=== PATIENT | female | born 1945 | race Caucasian/White ===

== ENCOUNTER 2019-11-13 14:37 | Outpatient (CLI) | payer MEDICARE, OTHER, SELFPAY ==
--- NOTE | 2019-11-13 15:00 | USCV_ITS ---
Tiff Rose Age: 73 Gender: F : 1945 Exam Date: 11/13/2019 15:08 Ordering Phys: Jake Hill DO Technologist: Blanca Silva Exam Location: [facility] [place] Indication: systolic murmur BP: / HR: 62 Rhythm: Sinus Technical Quality: Adequate MEASUREMENTS (Male / Female) Normal Values 2D ECHO LV Diastolic Diameter PLAX 4.4 cm 4.2 - 5.9 / 3.9 - 5.3 cm LV Systolic Diameter PLAX 1.5 cm IVS Diastolic Thickness 1.1 cm 0.6 - 1.0 / 0.6 - 0.9 cm IVS Systolic Thickness 1.5 cm LVPW Diastolic Thickness 0.9 cm 0.6 - 1.0 / 0.6 - 0.9 cm LVPW Systolic Thickness 1.7 cm LVOT Diameter 2.0 cm LV Ejection Fraction 2D Teich 93.5 % LV Ejection Fraction MOD 2C 62.0 % LV Ejection Fraction 2C AL 63.1 % LA Diameter 3.6 cm LA Width 2.8 cm LA Height 4.5 cm RA Width 2.2 cm RA Height 4.2 cm M-MODE LV Diastolic Diameter MM 4.8 cm 4.2 - 5.9 / 3.9 - 5.3 cm LV Systolic Diameter MM 2.9 cm LV Ejection Fraction MM Teich 70.9 % IVS Diastolic Thickness MM 0.5 cm 0.6 - 1.0 / 0.6 - 0.9 cm IVS Systolic Thickness MM 0.9 cm LVPW Diastolic Thickness MM 0.8 cm 0.6 - 1.0 / 0.6 - 0.9 cm LVPW Systolic Thickness MM 1.7 cm Aortic Annulus Diameter 2.6 cm LA Ao Ratio MM 1.4 MV E Point Septal Separation 0.3 cm DOPPLER AV Peak Velocity 144.0 cm/s LVOT Peak Velocity 126.0 cm/s AV Area Cont Eq vti 2.8 cm squared AV Area Cont Eq pk 2.8 cm squared MV Peak Velocity 110.0 cm/s MV Area PHT 4.3 cm squared Mitral E to A Ratio 0.9 MV E' Velocity 8.0 cm/s Mitral E to MV E' Ratio 8.9 Mitral E to LV E' Lateral Ratio 8.4 Mitral E to LV E' Septal Ratio 9.5 TR Peak Velocity 209.0 cm/s TR Peak Gradient 17.5 mmHg Right Atrial Pressure 3.0 mmHg Pulmonary Artery Systolic Pressu 20.5 mmHg PV Peak Velocity 114.0 cm/s RV Acceleration Time 0.1 s FINDINGS Left Ventricle Normal left ventricular cavity size. Normal left ventricular systolic function. No regional wall motion abnormalities. Left ventricular ejection fraction is estimated at 65 %. Grade II/IV diastolic dysfunction, moderately elevated filling pressures. Right Ventricle The right ventricle is normal in size and function. Right Atrium The right atrium is normal in size. Left Atrium The left atrium is normal in size. Mitral Valve Structurally normal mitral valve without significant stenosis or prolapse. There is no mitral regurgitation. Aortic Valve Mild aortic valve calcification. No aortic valve stenosis. Mild to moderate aortic valve regurgitation. Tricuspid Valve Mild tricuspid valve regurgitation. Pulmonic Valve Structurally normal pulmonic valve without significant stenosis. There is no pulmonic regurgitation. Pericardium Normal pericardium without effusion. Aorta Normal ascending aorta dimension. CONCLUSIONS 1-Normal left ventricular cavity size. Normal left ventricular systolic function. No regional wall motion abnormalities. Left ventricular ejection fraction is estimated at 65 %. Grade II/IV diastolic dysfunction, moderately elevated filling pressures. 2-Structurally normal mitral valve without significant stenosis or prolapse. There is no mitral regurgitation. 3-Mild aortic valve calcification. No aortic valve stenosis. Mild to moderate aortic valve regurgitation. 4-Mild tricuspid valve regurgitation. 5-There is no pericardial effusion. 6-Pulmonary artery systolic pressure is within normal limits. 7-Right atrial pressure is around 5 mm of mercury. 8-No significant change since the prior echocardiogram study of 05/20/2016. Shelbie Todd MD (Electronically Signed) Final Date: 13 November 2019 17:55 S
== END 2019-11-13 14:38 | disposition home or self-care (01) ==
LOC: US 14:43
PROVIDERS: Family Provider Internal Medicine; PCP Internal Medicine; Visit Provider Internal Medicine
DX: I08.2 Rheumatic disorders of both aortic and tricuspid valves (principal); R01.1 Cardiac murmur, unspecified
CPT/HCPCS: 93306

== ENCOUNTER 2019-12-11 16:08 | Outpatient (CLI) | payer MEDICARE, OTHER, SELFPAY | END 2019-12-11 16:09 | disposition home or self-care (01) | LOC: LAB 16:14 | PROVIDERS: Family Provider Internal Medicine; PCP Internal Medicine; Visit Provider Internal Medicine Cardiovascular Disease | DX: R06.02 Shortness of breath (principal) | CPT/HCPCS: 80048; 83880; 85378 ==

== ENCOUNTER 2020-04-09 09:06 | Outpatient (CLI) | payer MEDICARE, OTHER, SELFPAY ==
--- NOTE | 2020-04-09 09:29 | ECG_ITS ---
NAME OF STUDY: LEXISCAN SESTAMIBI STRESS TEST INDICATION: Shortness of Breath PROCEDURE: At the baseline, the EKG revealed sinus bradycardia with a poor R wave progression. Features of old anteroseptal SC. Nonspecific T wave changes in the high lateral leads. The baseline blood pressure was 229/78 mm Hg with a heart rate of 56 beats/min. Lexiscan was infused over a period of 20 seconds. A total of 0.4 milligrams of Lexiscan was infused. The stress phase was continued for a total of 5 minutes. Heart rate at the end of the stress phase was 84 with a blood pressure 217/59. The EKG at the peak infusion revealed no significant changes occasional PVCs were noted during the infusion.. Sestamibi was injected 20 seconds after the Lexiscan infusion. Blood pressure at the end of the recovery phase was 198/70 with a heart rate of 58 per minute. CONCLUSION: 1. No significant EKG changes with the LexiScan infusion 2. No LexiScan induced chest pain or cardiac arrhythmia 3. Normal blood pressure and heart rate response 4. Sestamibi/sestamibi perfusion scan pending; see separate report. Electronically Signed On 04-10-2020 9:27:34 CDT by Viky Cuello M.D. [email or web address]
--- NOTE | 2020-04-09 09:30 | NMCV_ITS ---
NM arpan perf SPECT r/s* [id number] Tiff Rose Age: 74 Gender: F : 1945 Exam Date: 04/09/2020 10:10 Ordering Phys: Viky Cuello MD ([email or web address]) Technologist: ROMA Jamil Exam Location: [facility] Indications: SHORTNESS OF BREATH STRESS TEST Please see separate stress test report in [facility] for full findings IMAGE PROTOCOL Rest/Stress 1 Lexiscan Day Radiopharmaceutical Dose (mCi) Administration Site Administered by Rest: Tc-99m 10.7 IV ROMA Thao Sestamibi Stress:Tc-99m 32.8 IV ROMA Thao Sestamibi Rest: 09-Apr-2020 60 Discovery 630 Stress: 09-Apr-2020 30 Discovery 630 0.4mg Lexiscan. Images obtained in supine and prone position. SPECT RESULTS Technical Quality: Excellent Raw Data Analysis: Normal Image Corrections: No attenuation or motion correction applied Summed Stress Score: 0 Summed Rest Score: 0 Summed Difference Score: 0 PERFUSION FINDINGS Fairly uniform myocardial tracer uptake with no significant perfusion abnormalities FUNCTIONAL RESULTS (calculated via Gated SPECT) Stress Image LV EF (%): 86 Stress EDV (mL):71 TID: 1.03 Stress ESV (mL):10 FUNCTIONAL FINDINGS: Segmental wall motion analysis revealing no gross wall motion abnormalities IMPRESSIONS 1. Unremarkable myocardial perfusion imaging. 2. Normal LV ejection fraction. 3. LV wall motion analysis revealing no gross wall motion abnormalities 4. Normal LV volume. No significant coronary ischemia, based on the above findings Dr Viky Cuello MD FACC (Electronically Signed) Final Date: 09 April 2020 20:22 S
[2020-04-09 09:33] VITALS: BMI 34.4
--- NOTE | 2020-04-09 10:57 | SUR.PREOP ---
Patient reports no pain or discomfort prior to the start of the procedure.
[2020-04-09] MEDS: regadenoson 0.4 Mg/5 ml Syringe IVP (11:09)
[2020-04-09] MEDS: amlodipine 5 mg Tablet PO (11:27)
[2020-04-09 12:06] VITALS: BP 198/72; PULSE 60
== END 2020-04-09 09:07 | disposition home or self-care (01) ==
PROVIDERS: Family Provider Internal Medicine; PCP Internal Medicine; Visit Provider Internal Medicine Cardiovascular Disease
DX: R06.02 Shortness of breath (principal)
CPT/HCPCS: 78452; 93017; A9500; J2785

== ENCOUNTER → 2020-06-06 13:16 | Outpatient (BNVA) | payer MEDICARE, OTHER, SELFPAY | PROVIDERS: Family Provider Internal Medicine; PCP Internal Medicine; Referring Provider Nurse Practitioner Family; Visit Provider Nurse Practitioner | DX: G25.9 Extrapyramidal and movement disorder, unspecified (principal); R41.9 Unspecified symptoms and signs involving cognitive functions and awareness | CPT/HCPCS: 99204 ==

== ENCOUNTER 2020-06-21 08:13 | Outpatient (CLI) | payer MEDICARE, OTHER, SELFPAY ==
[2020-06-21 08:45] LABS: Blood Urea Nitrogen 21 mg/dL (8-23)
[2020-06-21] MEDS: iohexol 300 mg/mL 100 mL Btl IV (09:00)
--- NOTE | 2020-06-21 09:00 | CT_ITS ---
WS: [id number] CT scan of the head, with and without IV contrast, 06/21/2020 Clinical Data: SEE DX Comparison: CT head, 03/15/2019. DLP: 1719.[address] scans at [facility] use at least one of these dose optimization techniques: automat ed exposure control; mA and/or kV adjustment per patient size (includes targeted exams where dose is matched to clinical indication); or iterative reconstruction. Findings: The ventricular system is normal without shift. No recent infarct or hemorrhage is seen. There are no abnormal intracerebral masses. The cerebellum and brainstem are not remarkable. No abnormal contrast enhancement of any structure occurs. Bony windows of the skull and skull base show no fractures or erosions. The mastoid air cells, risk management intern al auditory canals, sella turcica, intraorbital contents, and paranasal sinuses are unremarkable. CT/CT head wo/w con [id number] Impression: Negative CT scan of the head
== END 2020-06-21 08:14 | disposition home or self-care (01) ==
LOC: RADWPI 08:16
PROVIDERS: Family Provider Internal Medicine; PCP Internal Medicine; Visit Provider Nurse Practitioner
DX: G25.9 Extrapyramidal and movement disorder, unspecified (principal)
CPT/HCPCS: 70470; 82565; 84520; Q9967

== ENCOUNTER → 2020-07-16 12:38 | Outpatient (BNVA) | payer MEDICARE, OTHER, SELFPAY | PROVIDERS: Family Provider Internal Medicine; PCP Internal Medicine; Visit Provider Specialist | DX: G25.3 Myoclonus (principal); Z87.891 Personal history of nicotine dependence | CPT/HCPCS: 95816 ==

== ENCOUNTER 2023-03-13 20:06 | Emergency (ER) | payer MEDICARE, OTHER, SELFPAY ==
[2023-03-13 20:19] VITALS: BP 152/80; PULSE 72; RESP 16; TEMP 37.3; O2SAT 94; BMI 29.6
--- NOTE | 2023-03-13 21:04 | CTR_ITS ---
PROCEDURE INFORMATION: Exam: CT Cervical Spine Without Contrast Exam date and time: 03/13/2023 9:24 PM Age: 77 years old Clinical indication: Injury or trauma; Fall; Blunt trauma; Additional info: Fall, hit top of head, neck tenderness TECHNIQUE: Imaging protocol: Computed tomography of the cervical spine without contrast. Radiation optimization: All CT scans at this facility use at least one of these dose optimization techniques: automated exposure control; mA and/or kV adjustment per patient size (includes targeted exams where dose is matched to clinical indication); or iterative reconstruction. REPORTING DATA: Count of CT and Cardiac NM exams in prior 12 months: This patient has received 0 known CTs and 0 known cardiac nuclear medicine studies in the 12 months prior to the current study. COMPARISON: CT head wo con* [id number] 03/13/2023 9:21 PM RADIATION DOSE METRICS: Total DLP (mGy-cm): 356.75 FINDINGS: Bones/joints: No acute cervical spine fracture or spondylolisthesis. The atlanto dens interval is within normal limits. Operative changes of C4 laminectomy. Osseous fusion of the C5 and C6 vertebral bodies. Multilevel intervertebral disc space narrowing along with posterior disc osteophyte complexes, uncovertebral joint hypertrophic changes, and facet arthropathy appears to result in up to severe stenosis of the neural foramina at multiple levels most pronounced at C6-C7 and on the left at C4-C5. Neurostimulator leads enter the posterior spinal canal at the level of T2-T3 with the distal end terminating at the level of C4. Lungs: Right upper lobe 5 mm x 3 mm pulmonary nodule on series 6, image 82. Left upper lobe sub 5 mm hazy reticulonodular opacity on series 6, image 81. Soft tissues: Grossly unremarkable. CT/CT cervical spin wo con* [id number] IMPRESSION: 1. No acute cervical spine fracture or spondylolisthesis. 2. Operative changes of C4 laminectomy and cervical spondylosis as described above. 3. Right upper lobe 5 mm x 3 mm pulmonary nodule on series 6, image 82. For patients at low risk (minimal or absent history of smoking and of other known risk factors), no routine follow-up is indicated. For patients at high risk (history of smoking or of other known risk factors), consider optional CT Chest at 12 months. (Reference: Frank) 4. Other chronic/incidental findings as described above. REFERENCES: Frank Luther, et al. Guidelines for Management of Incidental Pulmonary Nodules Detected on CT Images: From the Fleischner Society 2017. Radiology. 2017;284(1):228-243.
--- NOTE | 2023-03-13 21:04 | CTR_ITS ---
PROCEDURE INFORMATION: Exam: CT Head Without Contrast Exam date and time: 03/13/2023 9:21 PM Age: 77 years old Clinical indication: Injury or trauma; Fall; Blunt trauma (contusions or hematomas); Consciousness not specified; Additional info: Fall, hematoma to top right of head with nausea TECHNIQUE: Imaging protocol: Computed tomography of the head without contrast. Radiation optimization: All CT scans at this facility use at least one of these dose optimization techniques: automated exposure control; mA and/or kV adjustment per patient size (includes targeted exams where dose is matched to clinical indication); or iterative reconstruction. REPORTING DATA: Count of CT and Cardiac NM exams in prior 12 months: This patient has received 0 known CTs and 0 known cardiac nuclear medicine studies in the 12 months prior to the current study. COMPARISON: CT head wo/w con [id number] 06/21/2020 8:49 AM RADIATION DOSE METRICS: Total DLP (mGy-cm): 1136.35 FINDINGS: Brain: No acute intracranial hemorrhage, abnormal extra-axial fluid collection, mass effect, or midline shift. Cerebral ventricles: The ventricular system is within normal limits of variation for the patient's age. Paranasal sinuses: Visualized paranasal sinuses are grossly unremarkable. No fluid levels. Mastoid air cells: Visualized mastoid air cells are well aerated. Bones/joints: No acute fracture. Hyperostosis frontals interna. Soft tissues: Mild soft tissue swelling/hematoma overlying the right the parietal bone. Vasculature: Atheromatous changes are seen within the bilateral carotid siphons. CT/CT head wo con* [id number] IMPRESSION: 1. No acute intracranial findings. 2. Other chronic/incidental findings as described above.
--- NOTE | 2023-03-13 21:04 | XRR_ITS ---
PROCEDURE INFORMATION: Exam: XR Right Toe(s) Exam date and time: 03/13/2023 9:41 PM Age: 77 years old Clinical indication: Injury or trauma; Fall; Blunt trauma; Toes; Right; Additional info: Injury, hit toe during fall- avulsed nail TECHNIQUE: Imaging protocol: Radiologic exam of the right toes. Views: Minimum 2 views. COMPARISON: No relevant prior studies available. FINDINGS: Bones/joints: No acute fracture or dislocation. Mild degenerative changes of the partially imaged right toes. Flexion of the 2nd and 3rd toes suggestive of hammertoe. Soft tissues: Grossly unremarkable. XR/XR toe RT min 2V [id number] IMPRESSION: No acute fracture or dislocation, see above.
--- NOTE | 2023-03-13 21:17 | XRR_ITS ---
PROCEDURE INFORMATION: Exam: XR Lumbosacral Spine Exam date and time: 03/13/2023 9:37 PM Age: 77 years old Clinical indication: Injury or trauma; Fall; Blunt trauma (contusions or hematomas); Additional info: Fall, pain TECHNIQUE: Imaging protocol: Radiologic exam of the lumbosacral spine. Views: 2 or 3 views. COMPARISON: CT lumbar spine w con [id number] 05/29/2016 10:42 AM FINDINGS: Bones/joints: No acute fracture, spondylolisthesis, or spondylolysis. Moderate to severe lower lumbar facet arthropathy appears to result in at least mild stenosis of the neural foramina at L5-S1. Soft tissues: Neurostimulator generator is projected over the bilateral upper quadrants. Partially imaged leads appear intact. Vasculature: Atheromatous changes are seen within the infrarenal aorta and bilateral iliac arteries. XR/XR lumbar spine 2-3V* [id number] IMPRESSION: 1. No acute lumbar spine fracture, spondylolisthesis, or spondylolysis. 2. Lumbar spondylosis and other chronic/incidental findings as described above.
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
--- NOTE | 2023-03-13 21:44 | XRR_ITS ---
PROCEDURE INFORMATION: Exam: XR Ribs Exam date and time: 03/13/2023 9:48 PM Age: 77 years old Clinical indication: Injury or trauma; Fall; Rib area, bilateral; Blunt trauma; Additional info: Rib pain TECHNIQUE: Imaging protocol: Radiologic exam of the of the ribs. Views: 3 views. Bilateral ribs. COMPARISON: CR XR chest 2V* [id number] 06/13/2021 9:53 AM FINDINGS: Bones/joints: No acute fracture or dislocation. Neurostimulator devices in place wires appear intact with distal end of thoracic leads projecting at the level of T7-T8 and the distal end of the cervical leads projecting over the partially imaged lower cervical spine. Pleural space: No pneumothorax. Soft tissues: Grossly unremarkable in appearance. XR/XR ribs BI mn 4V w CXR1V [id number] IMPRESSION: No acute fracture or dislocation. No pneumothorax.
[2023-03-13] MEDS: acetaminophen 325 mg Tablet 650 MG PO (23:15)
[2023-03-13 23:56] VITALS: BP 152/80; PULSE 72; RESP 16; O2SAT 94
== END 2023-03-13 23:57 | disposition home or self-care (01) ==
PROVIDERS: Emergency Provider Physician Assistant; PCP Internal Medicine
DX: S00.03XA Contusion of scalp, initial encounter (principal); S50.11XA Contusion of right forearm, initial encounter; S91.201A Unspecified open wound of right great toe with damage to nail, initial encounter; M54.50 Low back pain, unspecified; S06.0X0A Concussion without loss of consciousness, initial encounter; Z87.891 Personal history of nicotine dependence; G30.9 Alzheimer's disease, unspecified; F02.80 Dementia in other diseases classified elsewhere, unspecified severity, without behavioral disturbance, psychotic disturbance, mood disturbance, and anxiety; I10 Essential (primary) hypertension; W10.8XXA Fall (on) (from) other stairs and steps, initial encounter
CPT/HCPCS: 70450; 71111; 72100; 72125; 73660; 99284

== ENCOUNTER 2023-07-16 00:37 | Emergency (ER) | payer MEDICARE, OTHER, MEDICAID, SELFPAY ==
[2023-07-16] VITALS (18 sets, daily range): BP systolic 166–220; BP diastolic 54–93; PULSE 68–89; RESP 14–25; TEMP 36.6; O2SAT 93–100; BMI 28.3
--- NOTE | 2023-07-16 00:55 | XRR_ITS ---
PROCEDURE INFORMATION: Exam: XR Chest Exam date and time: 07/16/2023 12:59 AM Age: 77 years old Clinical indication: Other: Chills/sweats; Additional info: Weakness TECHNIQUE: Imaging protocol: Radiologic exam of the chest. Views: 1 view. COMPARISON: No relevant prior studies available. FINDINGS: Lungs: Unremarkable. No consolidation. Pleural spaces: Unremarkable. No pleural effusion. No pneumothorax. Heart/Mediastinum: Unremarkable. No cardiomegaly. Advanced diffuse vascular calcification noted. Bones/joints: Multifocal spinal leads. XR/XR chest 1V portable [id number] IMPRESSION: No acute findings.
--- NOTE | 2023-07-16 00:55 | ECG_ITS ---
[facility] Test Date: 2023-07-16 Pat Name: Tiff Rose Department: Room: Gender: Female Vice President Education: : 1945 Requested By: Elliot Leal Order Number: [id number] Jocelyn MD: Viky Cuello M.D. Measurements Intervals [place] Rate: 69 P: 55 [place]: 178 QRS: -16 QRSD: 81 T: 103 QT: 398 QTc: 427 Interpretive Statements SINUS RHYTHM ANTEROSEPTAL MYOCARDIAL INFARCTION , OF INDETERMINATE AGE [40+ ms Q WAVE IN V1-V4] Compared to ECG 03/25/2019 23:49:46 Myocardial infarct finding now present T-wave abnormality no longer present Electronically Signed On 07-16-2023 17:18:16 CDT by Viky Cuello M.D. [id number]
--- NOTE | 2023-07-16 01:12 | ED_ITS ---
HPI - Weakness General: Chief complaint: Weakness Stated complaint: Shakey and Clamy Time Seen by Provider: 07/16/23 00:50 History of Present Illness: Patient presents to the ER with complaints of getting shaky clammy and cold. Patient says this been going on for about 12 hours. Daughter says that she only told her about it about an hour ago. Daughter does state patient does have dementia so she is not for sure which is true. Patient denies any pain at this time as well as denies any nausea vomiting diarrhea shortness of breath. Patient did tell nursing that this gets better when she eats peanut butter Patient had a fingerstick blood sugar of approximately 150. Daughter does say patient has had some congestion recently. Review of Systems General: Reports: 10 or more systems reviewed and unremarkable except in HPI and below PFSH ED PFSH: Medical History Alzheimer disease Aortic regurgitation Hypertension Neurocognitive disorder Rosacea Shortness of breath An EKG was done which revealed sinus rhythm with poor R wave progression. Possible old septal [place]. Some nonspecific ST-T changes in the lateral leads Surgical History H/O neck surgery H/O: hysterectomy Family History Other No pertinent family history in first degree relatives Social History Smoking and tobacco status: former smoker Alcohol intake: never Substance/Drug Use: never Physical Exam Const: COMMON NORMALS: no acute distress, average body habitus, patient orimalvin moore x3, no limitations, healthy appearing, alert and well nourished HENMT: COMMON NORMALS: normocephalic, atraumatic, hearing grossly normal bilat erally, external ears normal, Normal external nose present and moist oral mucous membranes HEAD & SCALP: normocephalic and atraumatic NOSE: Normal external nose present EXTERNAL EAR: Yes external ears normal Eye: COMMON NORMALS: Equal, round and reactive pupils present, EOMs intact bilaterally, conjunctivae normal and no scleral icterus CONJUNCTIVA: Yes conjunctivae normal PUPIL: Yes Equal, round and reactive pupils present Neck/C-Spine: COMMON NORMALS: full ROM, no lymphadenopathy, supple, no meningeal signs, no JVD and Thyroid normal THYROID: Thyroid normal Chest: COMMONS NORMALS: normal inspection of the chest and normal palpation of entire chest wall Resp: COMMON NORMALS: normal respiratory effort, No retractions, No use of accessory muscles and clear to auscultation bilaterally AUSCULTATION: clear to auscultation bilaterally Cardio: COMMON NORMALS: no JVD, regular rate, regular rhythm, S1 normal heart sound present, S2 normal heart sound present, No gallops present (Cardio), No clicks present (Cardio), No murmurs present (Cardio) and No rub (Cardio) RATE: regular rate RHYTHM: regular rhythm HEART SOUNDS: S1 normal heart sound present and S2 normal heart sound present GI: COMMON NORMALS: Normal to inspection, nondistended, normoactive bowel sounds present, Soft to palpation, non-tender, No hepatosplenomegaly present and no masses PALPATION: Yes Soft to palpation and Yes No hepatosplenomegaly present : COMMON NORMALS: Yes no CVA tenderness BLADDER/KIDNEY EXAM: Yes no CVA tenderness Back/Pelvis: COMMON NORMALS: no CVA tenderness Neuro: COMMON NORMALS: patient oriented x3 SENSORIUM/ORIENTATION: Yes alert MENINGEAL SIGNS: Yes no meningeal signs Course Vital Signs: Vital signs: Vital Signs Temperature 97.9 F 07/16/23 00:49 Pulse Rate 81 07/16/23 00:49 Respiratory Rate 18 07/16/23 00:49 Blood Pressure 189/56 07/16/23 04:39 Pulse Oximetry 97 07/16/23 00:49 MDM - Weakness Medical Decision Making Patient was worked up in the standard fashion included chest x-ray EKGs and lab work. All of which was benign essentially. Patient was given 1 dose of hydralazine 10 mg to get her blood pressure down. Patient said her symptoms went away when her blood pressure came down her blood pressure went back up and her symptoms came back. Patient was then given 1 p.o. dose of clonidine. Patient will be discharged on lisinopril 5 mg 1 pill once a day to help her blood pressure. Patient should follow-up with her PCP in the next 7 days or sooner as needed. Differential Diagnosis Unlikely acute myocardial infarction, anemia, hypoglycemia, hypothyroidism, rhabdomyolysis, sepsis or dehydration Medical Records I reviewed the patient's medical records. Lab Data I reviewed the patient's lab results. 07/16/23 01:37 07/16/23 01:37 Radiology Impressions Chest X-Ray 07/16/23 00:55 IMPRESSION: No acute findings. Laboratory Results WBC 6.99 10^3/uL (3.29-11.43) 07/16/23 01:37 RBC 5.58 10^6/uL (3.85-5.65) 07/16/23 01:37 Hgb 15.40 g/dL (11.27-16.99) 07/16/23 01:37 Hct 46.8 % (36-47) 07/16/23 01:37 MCV 83.9 fl (85-98) L 07/16/23 01:37 MCH 27.6 pg (27-33) 07/16/23 01:37 MCHC 32.9 g/dL (30-55) 07/16/23 01:37 RDW 14.0 % (12.1-15.1) 07/16/23 01:37 Plt Count 272 10^3/cmm (157-399) 07/16/23 01:37 MPV 9.8 fL (7.4-10.4) 07/16/23 01:37 Neut % (Auto) 71.9 % 07/16/23 01:37 Lymph % (Auto) 18.2 % 07/16/23 01:37 [place] % (Auto) 7.4 % 07/16/23 01:37 Eos % (Auto) 1.3 % 07/16/23 01:37 Baso % (Auto) 0.9 % 07/16/23 01:37 Neut # (Auto) 5.03 10^3/uL (1.8-7.7) 07/16/23 01:37 Lymph # (Auto) 1.3 10^3/uL (0.8-4.8) 07/16/23 01:37 [place] # (Auto) 0.5 10^3/uL (0.2-0.9) 07/16/23 01:37 Eos # (Auto) 0.1 10^3/uL (0.0-0.8) 07/16/23 01:37 Baso # (Auto) 0.1 10^3/uL (0.0-0.1) 07/16/23 01:37 Nucleated RBC % (auto) 0 % 07/16/23 01:37 Nucleated RBCs # 0.0 /100WBC 07/16/23 01:37 Sodium 140 mmol/L (136-145) 07/16/23 01:37 Potassium 4.2 mmol/L (3.5-5.1) 07/16/23 01:37 Chloride 101 mmol/L (98-107) 07/16/23 01:37 Carbon Dioxide 28 mmol/L (22-29) 07/16/23 01:37 Anion Gap 15.2 (5-19) 07/16/23 01:37 BUN 28 mg/dL (8-23) H 07/16/23 01:37 Creatinine 0.7 mg/dL (0.5-0.9) 07/16/23 01:37 GFR Calculation Not Reportable 07/16/23 01:37 Glucose 165 mg/dL (65-115) H 07/16/23 01:37 POC Glucose 118 mg/dL (70-110) H 07/16/23 03:19 Calculated Osmolality 299 mOsm/kg (285-295) H 07/16/23 01:37 Calcium 9.7 mg/dL (8.5-10.5) 07/16/23 01:37 Magnesium 2.4 mg/dL (1.7-2.3) H 07/16/23 01:37 Total Bilirubin 0.2 mg/dL (0.15-1.2) 07/16/23 01:37 AST 15 U/L (0-32) 07/16/23 01:37 ALT 16 U/L (0-33) 07/16/23 01:37 Alkaline Phosphatase 110 U/L (35-105) H 07/16/23 01:37 Troponin T Baseline 17 ng/L (0-10) H 07/16/23 01:37 Troponin T 120 Minute 15.38 ng/L (0-10) H 07/16/23 03:43 Delta Troponin T -1.62 ABS# (0-10) L 07/16/23 03:43 Total Protein 7.3 g/dL (6.6-8.7) 07/16/23 01:37 Albumin 4.8 g/dL (3.5-5.2) 07/16/23 01:37 Globulin 2.5 g/dL (1.3-4.6) 07/16/23 01:37 Urine Color Yellow (Yellow) 07/16/23 03:36 Urine Appearance Clear (CLEAR) 07/16/23 03:36 Urine pH 5 (5-7) 07/16/23 03:36 Ur Specific [place] 1.020 (1.005-1.030) 07/16/23 03:36 Urine Protein Neg (Negative) 07/16/23 03:36 Urine Glucose (UA) Norm (Normal) 07/16/23 03:36 Urine Ketones Negative (Negative) 07/16/23 03:36 Urine Blood Neg (Negative) 07/16/23 03:36 Urine Nitrate Negative (Negative) 07/16/23 03:36 Urine Bilirubin Neg (Negative) 07/16/23 03:36 Urine Urobilinogen Neg mg/dL (Negative) 07/16/23 03:36 Ur Leukocyte Esterase Negative (Negative) 07/16/23 03:36 EKG Data EKG 1: I personally reviewed and interpreted this EKG as follows: EKG interpretation date: 07/16/23 EKG interpretation time: 01:25 Prior EKG tracings: not available for review Interpretation: EKG showed ventricular rate 69 bpm, [place] interval 178, QRS duration 81, QTc of 417, sinus rhythm, anteroseptal myocardial infarction of indeterminate age with Q waves in V1 through V4. EKG 2: I personally reviewed and interpreted this EKG as follows: EKG interpretation date: 07/16/23 EKG interpretation time: 02:53 Prior EKG tracings: available for review Interpretation: EKG showed ventricular rate 72 beats minute, [place] interval 184, QRS duration 92, QTc 419, sinus rhythm, septal myocardial infarction probably old Q waves in V1 V2 Discharge Plan Discharge Patient Disposition: Home Clinical Impression: Hypertension Qualifiers: Hypertension type: primary hypertension Qualified Code(s): I10 - Essential (primary) hypertension Condition: Stable Prescriptions: New lisinopril 5 mg tablet 5 mg PO DAILY Qty: 14 0RF No Action cyproheptadine 4 mg tablet 4 mg PO .at bedtime venlafaxine 37.5 mg capsule,extended release 24hr 37.5 mg PO .twice a day multivitamin Tablet 1 tab PO DAILY ergocalciferol (vitamin D2) 400 unit tablet 400 unit PO DAILY donepezil 10 mg tablet 10 mg PO .at bedtime olanzapine 5 mg tablet 5 mg PO DAILY buprenorphine-naloxone [Suboxone] 8-2 mg film 1 film SUBLINGUAL BID minocycline 100 mg capsule 50 mg PO DAILY Discharge Orders: Discharge ED (Routine); Ordered 07/16/23 Ordered By: Elliot Leal Referrals: Jake Hill DO [Primary Care Provider] - 1 week Patient Instructions: Hypertension Activity Restrictions/Additional Instructions: Please take all medicine as prescribed. Please try to take your blood pressure at least 1 time a day and keep a log and take it with you to your family practice visit. Please try to visit your family practice physician in the next 7 to 10 days or sooner as needed. 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
[2023-07-16 01:46] LABS: Basophils # 0.1 10^3/uL (0.0-0.1); Basophils % 0.9 %; Eosinophils # 0.1 10^3/uL (0.0-0.8); Eosinophils % 1.3 %; Hematocrit 46.8 % (36-47); Lymphocytes # 1.3 10^3/uL (0.8-4.8); Lymphocytes % 18.2 %; Mean Corpuscular HGB Conc 32.9 g/dL (30-55); Mean Corpuscular Hemoglobin 27.6 pg (27-33); Mean Corpuscular Volume 83.9 fl (85-98); Mean Platelet Volume 9.8 fL (7.4-10.4); Monocytes # 0.5 10^3/uL (0.2-0.9); Monocytes % 7.4 %; Neutrophils # 5.03 10^3/uL (1.8-7.7); Neutrophils % 71.9 %; Nucleated Red Blood Cells % 0 %; Platelet Count 272 10^3/cmm (157-399); Red Blood Count 5.58 10^6/uL (3.85-5.65); White Blood Count 6.99 10^3/uL (3.29-11.43)
[2023-07-16 02:04] LABS: Troponin(5th) Baseline 17 ng/L (0-10)
[2023-07-16 02:07] LABS: Alanine Aminotransferase 16 U/L (0-33); Albumin Level 4.8 g/dL (3.5-5.2); Alkaline Phosphatase 110 U/L (35-105); Anion Gap 15.2 (5-19); Aspartate Amino Transferase 15 U/L (0-32); Blood Urea Nitrogen 28 mg/dL (8-23); Calcium 9.7 mg/dL (8.5-10.5); Carbon Dioxide 28 mmol/L (22-29); Chloride 101 mmol/L (98-107); Globulin 2.5 g/dL (1.3-4.6); Glucose 165 mg/dL (65-115); Magnesium 2.4 mg/dL (1.7-2.3); Osmolality Calculated 299 mOsm/kg (285-295); Potassium 4.2 mmol/L (3.5-5.1); Sodium 140 mmol/L (136-145); Total Bilirubin 0.2 mg/dL (0.15-1.2); Total Protein 7.3 g/dL (6.6-8.7)
[2023-07-16] MEDS: hyDRALAzine 20 mg/mL INJ 1 mL 10 MG IVP ×2 (02:11→03:54)
--- NOTE | 2023-07-16 02:53 | ECG_ITS ---
[facility] Test Date: 2023-07-16 Pat Name: Tiff Rose Department: Room: Gender: Female Environmental Services Director: : 1945 Requested By: Elliot Leal Order Number: [id number] Jocelyn MD: Viky Cuello M.D. Measurements Intervals [place] Rate: 72 P: 45 [place]: 184 QRS: -10 QRSD: 82 T: 84 QT: 394 QTc: 434 Interpretive Statements SINUS RHYTHM SEPTAL MYOCARDIAL INFARCTION , PROBABLY OLD [40+ ms Q WAVE IN V1/V2] Compared to ECG 07/16/2023 01:25:04 No significant changes Electronically Signed On 07-16-2023 17:22:11 CDT by Viky Cuello M.D. [id number]
[2023-07-16 03:16] LABS: Glucose Point of Care 156 mg/dL (70-110)
[2023-07-16 03:22] LABS: Glucose Point of Care 118 mg/dL (70-110)
[2023-07-16 04:15] LABS: Add Urine Microscopic? NO; Charge for UA Resulting for Rev
[2023-07-16 04:17] LABS: Troponin 5 2HR 15.38 ng/L (0-10)
[2023-07-16 04:18] LABS: Bilirubin Urine Neg (Negative); Blood Urine Neg (Negative); Glucose Urine UA Norm (Normal); Ketones Urine Negative (Negative); Leukocyte Esterase Urine Negative (Negative); Nitrate Urine Negative (Negative); Protein Urine Neg (Negative); Urine Appearance Clear (CLEAR); Urine Color Yellow (Yellow); Urobilinogen Urine Neg (Negative); pH Urine 5 (5-7)
[2023-07-16 04:18] LABS: Troponin 5 2HR Delta -1.62 ABS# (0-10)
[2023-07-16] MEDS: cloNIDine 0.1 mg Tablet 0.2 MG PO (04:39)
== END 2023-07-16 05:15 | disposition home or self-care (01) ==
PROVIDERS: Emergency Provider Emergency Medicine; PCP Internal Medicine
DX: I10 Essential (primary) hypertension (principal); G30.9 Alzheimer's disease, unspecified; F02.80 Dementia in other diseases classified elsewhere, unspecified severity, without behavioral disturbance, psychotic disturbance, mood disturbance, and anxiety; Z87.891 Personal history of nicotine dependence
CPT/HCPCS: 36415; 36416; 71045; 80053; 81003; 82962; 83735; 84484; 85025; 93005; 96374; 96376; 99285; J0360

== ENCOUNTER 2023-08-08 14:52 | Emergency (ER) | payer MEDICARE, OTHER, MEDICAID, SELFPAY ==
[2023-08-08 15:00] VITALS: BP 162/74; PULSE 94; RESP 17; TEMP 36.8; O2SAT 95; BMI 28.1
--- NOTE | 2023-08-08 15:06 | CTR_ITS ---
PROCEDURE INFORMATION: Exam: CT Cervical Spine Without Contrast Exam date and time: 08/08/2023 3:38 PM Age: 77 years old Clinical indication: Injury or trauma; Fall; Blunt trauma; Prior surgery; Surgery date: 6+ months; Surgery type: Neck; Additional info: Fall, head injury TECHNIQUE: Imaging protocol: Computed tomography of the cervical spine without contrast. Radiation optimization: All CT scans at this facility use at least one of these dose optimization techniques: automated exposure control; mA and/or kV adjustment per patient size (includes targeted exams where dose is matched to clinical indication); or iterative reconstruction. REPORTING DATA: Count of CT and Cardiac NM exams in prior 12 months: This patient has received 2 known CTs and 0 known cardiac nuclear medicine studies in the 12 months prior to the current study. COMPARISON: CT cervical spin wo con* [id number] 03/13/2023 9:24 PM RADIATION DOSE METRICS: Total DLP (mGy-cm): 631.2 FINDINGS: Tubes, catheters and devices: Spinal stimulator leads seen terminating in the cervical spinal canal. Bones/joints: No acute fracture. Normal alignment. No severe spinal canal stenosis. Lungs: Lung apices are normal. Soft tissues: Unremarkable. CT/CT cervical spin wo con* [id number] IMPRESSION: No acute findings.
--- NOTE | 2023-08-08 15:06 | CTR_ITS ---
PROCEDURE INFORMATION: Exam: CT Head Without Contrast Exam date and time: 08/08/2023 3:38 PM Age: 77 years old Clinical indication: Injury or trauma; Fall; Blunt trauma (contusions or hematomas); Additional info: Fall, head injury TECHNIQUE: Imaging protocol: Computed tomography of the head without contrast. Radiation optimization: All CT scans at this facility use at least one of these dose optimization techniques: automated exposure control; mA and/or kV adjustment per patient size (includes targeted exams where dose is matched to clinical indication); or iterative reconstruction. REPORTING DATA: Count of CT and Cardiac NM exams in prior 12 months: This patient has received 2 known CTs and 0 known cardiac nuclear medicine studies in the 12 months prior to the current study. COMPARISON: CT head wo con* [id number] 03/13/2023 9:21 PM RADIATION DOSE METRICS: Total DLP (mGy-cm): 949.4 FINDINGS: Brain: Normal. No hemorrhage. Unremarkable white matter. No mass effect. Cerebral ventricles: No ventriculomegaly. Paranasal sinuses: Visualized sinuses are unremarkable. No fluid levels. Mastoid air cells: Visualized mastoid air cells are well aerated. Bones/joints: Unremarkable. No acute fracture. Soft tissues: Posterior scalp contusion. CT/CT head wo con* [id number] IMPRESSION: No acute intracranial abnormality.
--- NOTE | 2023-08-08 15:40 | W.ED.FALL ---
HPI - Fall General: Chief Complaint: Fall Stated Complaint: fall/head injury Time Seen by Provider: 08/08/23 15:37 History of Present Illness: 77-year-old female comes in today for fall with head injury. Patient was pushing a cart at [facility] and was trying to put the cart up into the rack when the cart jerked on her causing her to fall backwards and hit the back of her head. Patient had no loss of consciousness. Patient did have some mild nausea. Patient has an abrasion to the occipital scalp. Patient is acting normal for self. Patient does have some mild dementia with short-term memory loss. Review of Systems General: Reports: 10 or more systems reviewed and unremarkable except in HPI and below GI: Reports: nausea Skin/Breast: Reports: new lesions PFSH ED PFSH: Medical History Alzheimer disease Aortic regurgitation Hypertension Neurocognitive disorder Rosacea Shortness of breath An EKG was done which revealed sinus rhythm with poor R wave progression. Possible old septal [place]. Some nonspecific ST-T changes in the lateral leads Surgical History H/O neck surgery H/O: hysterectomy Family History Other No pertinent family history in first degree relatives Social History Smoking and tobacco status: former smoker Alcohol intake: never Substance/Drug Use: never Physical Exam Const: COMMON NORMALS: alert HENMT: HEAD & SCALP: other (Abrasion occipital scalp) Neck/C-Spine: CERVICAL SPINE: Yes cervical ROM normal and No Cervical spine tenderness Chest: COMMONS NORMALS: normal inspection of the chest Resp: COMMON NORMALS: normal respiratory effort Cardio: COMMON NORMALS: regular rate RATE: regular rate GI: COMMON NORMALS: non-tender Back/Pelvis: COMMON NORMALS: thoracic and lumbar spine normal to inspection Extremity: COMMON NORMALS: full ROM Neuro: SENSORIUM/ORIENTATION: Yes alert Skin: TRAUMA: abrasion (Scalp occipital) Course Vital Signs: Vital signs: Vital Signs Temperature 98.2 F 08/08/23 15:00 Pulse Rate 94 08/08/23 15:00 Respiratory Rate 17 08/08/23 15:00 Blood Pressure 162/74 08/08/23 15:00 Pulse Oximetry 95 08/08/23 15:00 Oxygen Delivery Me thod Room Air 08/08/23 15:00 MDM - Fall Medical Decision Making 77-year-old female comes in today for evaluation of injury secondary to fall. Patient had slipped and fell striking the back of her head against concrete. On exam patient has a superficial abrasion to the occipital scalp. No crepitus or depression is noted in the skull. Pupils are equal and reactive. Patient moves all extremities well. Differential diagnosis includes skull fracture, intracranial bleeding, cervical neck fracture, contusions, abrasion. CT of the head and cervical spine were negative for fracture or intracranial bleeding. Reviewed exam with patient and family with recommendations for treatment and follow-up. Family and patient both reported understanding. Lab Data Radiology Impressions Cervical Spine CT 08/08/23 15:06 IMPRESSION: No acute findings. Head CT 08/08/23 15:06 IMPRESSION: No acute intracranial abnormality. All radiology interpretation(s) finalized by discharge Discharge Plan Discharge Patient Disposition: Home Clinical Impression: Fall Qualifiers: Encounter type: initial encounter Qualified Code(s): W19.XXXA - Unspecified fall, initial encounter Abrasion of scalp Qualifiers: Encounter type: initial encounter Qualified Code(s): S00.01XA - Abrasion of scalp, initial encounter Condition: Stable Prescriptions: No Action donepezil 10 mg tablet 10 mg PO .at bedtime olanzapine 5 mg tablet 5 mg PO DAILY minocycline 100 mg capsule 50 mg PO DAILY lisinopril 5 mg tablet 5 mg PO DAILY Qty: 14 0RF venlafaxine 75 mg capsule,extended release 24hr 75 mg PO DAILY Discharge Orders: Discharge ED (Routine); Ordered 08/08/23 Ordered By: Jeff Gallego Referrals: Jake Hill DO [Primary Care Provider] - Discharge Diet: Usual diet Discharge Activity: Increase activity as tolerated Patient Instructions: Fall Prevention for Older Adults (ED), Head Injury (ED) Activity Restrictions/Additional Instructions: Activity as tolerated. Use acetaminophen for pain. Clean the abrasion twice a day with mild soap and water and apply [id number] antibiotic ointment. Follow-up with primary care as needed. Return to ED for new concerns. 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
== END 2023-08-08 16:30 | disposition home or self-care (01) ==
PROVIDERS: Emergency Provider Nurse Practitioner Family; PCP Internal Medicine
DX: S00.01XA Abrasion of scalp, initial encounter (principal); G30.9 Alzheimer's disease, unspecified; F02.80 Dementia in other diseases classified elsewhere, unspecified severity, without behavioral disturbance, psychotic disturbance, mood disturbance, and anxiety; I10 Essential (primary) hypertension; Z87.891 Personal history of nicotine dependence; W18.39XA Other fall on same level, initial encounter; Y92.512 Supermarket, store or market as the place of occurrence of the external cause
CPT/HCPCS: 70450; 72125; 99284

== ENCOUNTER 2023-10-06 10:12 | Emergency (ER) | payer MEDICARE, OTHER, MEDICAID, SELFPAY ==
[2023-10-06 10:21] VITALS: BP 149/76; PULSE 80; RESP 17; TEMP 37.1; O2SAT 94; BMI 26.5
--- NOTE | 2023-10-06 11:52 | XRR_ITS ---
PROCEDURE INFORMATION: Exam: XR Chest Exam date and time: 10/06/2023 12:33 PM Age: 77 years old Clinical indication: Cough and dyspnea; Additional info: Dyspnea/cough TECHNIQUE: Imaging protocol: Radiologic exam of the chest. Views: 1 view. COMPARISON: CR XR chest 1V portable [id number] 07/16/2023 12:59 AM FINDINGS: Lungs: Left midlung nodular opacities likely nipple shadow in this location. No focal consolidation. Trace left pleural effusion or atelectasis. Pleural spaces: No large pleural effusion. No pneumothorax. Heart/Mediastinum: No cardiomegaly. Bones/joints: No acute findings. XR/XR chest 1V portable [id number] IMPRESSION: No acute findings.
[2023-10-06 12:07] LABS: Add Urine Microscopic? YES; Bilirubin Urine Neg (Negative); Blood Urine Trace (Negative); Glucose Urine UA Norm (Normal); Ketones Urine 1+ (Negative); Leukocyte Esterase Urine Negative (Negative); Nitrate Urine Negative (Negative); Protein Urine Neg (Negative); Urine Appearance Clear (CLEAR); Urine Color Yellow (Yellow); Urobilinogen Urine 4 mg/dL (Negative); pH Urine 5 (5-7)
[2023-10-06 12:11] VITALS: O2SAT 94
--- NOTE | 2023-10-06 12:16 | ED_ITS ---
HPI - COVID 2 General: Chief Complaint: COVID symptoms Stated Complaint: juan francisco carrero sent covid+ Time Seen by Provider: 10/06/23 11:52 Source: patient Mode of arrival: ambulatory History of Present Illness: 77-year-old female with tested positive at home for COVID after 1 to 2 days of symptoms. She has some mild underlying dementia and family notes she has been a little bit more confused she has had a continuous cough. Low-grade fevers as well. She is awake and alert at this time answers questions appropriately daughter is at the bedside with her. MD complaint: known COVID positive COVID 19 common symptoms: negative fever(s), chills or dyspnea COVID 19 other sytmptoms: negative chest pain COVID Results: 2 No Data to Display Review of Systems 2 Const: Denies: fever(s) or chills Card: Denies: chest pain Resp: Denies: dyspnea GI: Denies: abdominal pain : Denies: dysuria, urinary frequency or urinary urgency Musc: Denies: neck pain or back pain Skin/Breast: Denies: rash PFSH ED 2 PFSH: Medical History Neurocognitive disorder Hypertension Aortic regurgitation Alzheimer disease Shortness of breath An EKG was done which revealed sinus rhythm with poor R wave progression. Possible old septal ID. Some nonspecific ST-T changes in the lateral leads Rosacea Surgical History H/O neck surgery H/O: hysterectomy Family History Other No pertinent family history in first degree relatives Social History Smoking and tobacco/nicotine status: former use of tobacco/nicotine Alcohol intake: never Substance/Drug Use: never Physical Exam 2 Const: GENERAL APPEARANCE: cooperative and comfortable O RIENTATION/CONSCIOUSNESS: Yes awake HENMT: COMMON NORMALS: normocephalic, atraumatic and hearing grossly normal bilaterally HEAD & SCALP: normocephalic and atraumatic Resp: COMMON NORMALS: normal respiratory effort, No retractions, No use of accessory muscles and clear to auscultation bilaterally AUSCULTATION: clear to auscultation bilaterally Cardio: COMMON NORMALS: regular rate, regular rhythm and No murmurs present (Cardio) RATE: regular rate RHYTHM: regular rhythm GI: COMMON NORMALS: Soft to palpation and No hepatosplenomegaly present A USCULTATION: Yes normoactive bowel sounds PALPATION: Yes Soft to palpation, No Tenderness to palpation present (GI), No Guarding due to palpation present (GI) and Yes No hepatosplenomegaly present Extremity: COMMON NORMALS: normal to inspection, capillary refill normal, no clubbing, cyanosis or edema, no calf tenderness and no pedal edema Skin: COMMON NORMALS: no rashes or lesions noted GENERAL SKIN EXAM: no rashes or lesions noted Course 2 Vital Signs: Vital signs: Vital Signs Temperature 98.8 F 10/06/23 10:21 Pulse Rate 88 10/06/23 14:03 Respiratory Rate 18 10/06/23 14:03 Blood Pressure 143/62 10/06/23 14:03 Pulse Oximetry 96 10/06/23 14:03 Oxygen Delivery Me thod Room Air 10/06/23 12:17 MDM - COVID Medical Decision Making Patient has positive for COVID at home she is tolerating well. Chest x-ray unremarkable. We will discharge patient home with supportive cares Paxlovid follow-up with primary care doctor as needed return if worsens. Medical Records I reviewed the patient's medical records. Lab Data I reviewed the patient's lab results. 10/06/23 12:19 10/06/23 12:19 Radiology Impressions Chest X-Ray 10/06/23 11:52 IMPRESSION: No acute findings. Laboratory Results WBC 5.22 10^3/uL (3.29-11.43) 10/06/23 12:19 RBC 5.61 10^6/uL (3.85-5.65) 10/06/23 12:19 Hgb 16.10 g/dL (11.27-16.99) 10/06/23 12:19 Hct 49.1 % (36-47) H 10/06/23 12:19 MCV 87.5 fl (85-98) 10/06/23 12:19 MCH 28.7 pg (27-33) 10/06/23 12:19 MCHC 32.8 g/dL (30-55) 10/06/23 12:19 RDW 13.8 % (12.1-15.1) 10/06/23 12:19 Plt Count 178 10^3/cmm (157-399) 10/06/23 12:19 MPV 11.1 fL (7.4-10.4) H 10/06/23 12:19 Neut % (Auto) 65.1 % 10/06/23 12:19 Lymph % (Auto) 19.0 % 10/06/23 12:19 [place] % (Auto) 15.1 % 10/06/23 12:19 Eos % (Auto) 0.0 % 10/06/23 12:19 Baso % (Auto) 0.6 % 10/06/23 12:19 Neut # (Auto) 3.40 10^3/uL (1.8-7.7) 10/06/23 12:19 Lymph # (Auto) 1.0 10^3/uL (0.8-4.8) 10/06/23 12:19 [place] # (Auto) 0.8 10^3/uL (0.2-0.9) 10/06/23 12:19 Eos # (Auto) 0.0 10^3/uL (0.0-0.8) 10/06/23 12:19 Baso # (Auto) 0.0 10^3/uL (0.0-0.1) 10/06/23 12:19 Nucleated RBC % (auto) 0 % 10/06/23 12:19 Nucleated RBCs # 0.0 /100WBC 10/06/23 12:19 Sodium 137 mmol/L (136-145) 10/06/23 12:19 Potassium 4.2 mmol/L (3.5-5.1) 10/06/23 12:19 Chloride 98 mmol/L (98-107) 10/06/23 12:19 Carbon Dioxide 26 mmol/L (22-29) 10/06/23 12:19 Anion Gap 17.2 (5-19) 10/06/23 12:19 BUN 15 mg/dL (8-23) 10/06/23 12:19 Creatinine 0.6 mg/dL (0.5-0.9) 10/06/23 12:19 GFR Calculation Not Reportable 10/06/23 12:19 Glucose 119 mg/dL (65-115) H 10/06/23 12:19 Calculated Osmolality 286 mOsm/kg (285-295) 10/06/23 12:19 Calcium 9.6 mg/dL (8.5-10.5) 10/06/23 12:19 Total Bilirubin 0.3 mg/dL (0.15-1.2) 10/06/23 12:19 AST 29 U/L (0-32) 10/06/23 12:19 ALT 33 U/L (0-33) 10/06/23 12:19 Alkaline Phosphatase 91 U/L (35-105) 10/06/23 12:19 Total Protein 7.5 g/dL (6.6-8.7) 10/06/23 12:19 Albumin 4.5 g/dL (3.5-5.2) 10/06/23 12:19 Globulin 3.0 g/dL (1.3-4.6) 10/06/23 12:19 Urine Color Yellow (Yellow) 10/06/23 11:25 Urine Appearance Clear (CLEAR) 10/06/23 11:25 Urine pH 5 (5-7) 10/06/23 11:25 Ur Specific [place] 1.010 (1.005-1.030) 10/06/23 11:25 Urine Protein Neg (Negative) 10/06/23 11:25 Urine Glucose (UA) Norm (Normal) 10/06/23 11:25 Urine Ketones 1+ (Negative) H 10/06/23 11:25 Urine Blood Trace (Negative) H 10/06/23 11:25 Urine Nitrate Negative (Negative) 10/06/23 11:25 Urine Bilirubin Neg (Negative) 10/06/23 11:25 Urine Urobilinogen 4 mg/dL (Negative) H 10/06/23 11:25 Ur Leukocyte Esterase Negative (Negative) 10/06/23 11:25 Urine RBC None /hpf (0-2) 10/06/23 11:25 Urine WBC Rare /hpf (0-5) 10/06/23 11:25 Ur Squamous Epith Cells 0-4 /hpf (0-5) H 10/06/23 11:25 Amorphous Sediment Not Reportable 10/06/23 11:25 Urine Bacteria None /hpf (NONE) 10/06/23 11:25 Urine Mucus 1+ /hpf 10/06/23 11:25 Influenza Type A Ag negative (Negative) 10/06/23 12:19 Influenza Type B Ag negative (Negative) 10/06/23 12:19 2 No Data to Display All radiology interpretation(s) finalized by discharge Discharge Plan Discharge Patient Disposition: Home Clinical Impression: COVID-19 Condition: Stable Prescriptions: New Paxlovid 300 mg (150 mg x 2)-100 mg tablets,dose pack See Rx Instructions .ROUTE .COMPLEX Qty: 30 0RF Rx Instructions: orally per package directions No Action donepezil 10 mg tablet 10 mg PO .at bedtime olanzapine 5 mg tablet 5 mg PO DAILY minocycline 100 mg capsule 50 mg PO DAILY lisinopril 5 mg tablet 5 mg PO DAILY Qty: 14 0RF venlafaxine 75 mg capsule,extended release 24hr 75 mg PO DAILY Discharge Orders: Discharge ED (Routine); Ordered 10/06/23 Ordered By: Cristobal Alvarenga Referrals: Jake Hill, [Primary Care Provider] - Discharge Diet: Usual diet Discharge Activity: Increase activity as tolerated Patient Instructions: COVID-19 (Coronavirus Disease 2019) (ED), Opioid Safety, Pain Management Activity Restrictions/Additional Instructions: ER discharge You were seen today for COVID. Your vital signs are stable and chest x-ray was normal. You are given a prescription for Paxlovid which can lessen the intensity of the course of the infection. Paxlovid does not cure the infection and you may still have symptoms after you complete the 5-day course of the medicine. We do not recommend retreatment at the end of that time. Coding Level of Care Code ED Respiratory Therapy Manager for Pilar Heredia
[2023-10-06 12:17] VITALS: BP 143/62; PULSE 77; RESP 18; O2SAT 93
[2023-10-06] MEDS: sodium chloride 0.9% 500 ML 999 ML IV (12:19)
[2023-10-06 12:20] LABS: Add Urine Culture? No; Mucus Urine 1+ /hpf; Squamous Epithelial Cell Urine 0-4 /hpf (0-5); WBC Urine RARE /hpf (0-5)
[2023-10-06 12:36] LABS: Basophils % 0.6 %; Hematocrit 49.1 % (36-47); Mean Corpuscular HGB Conc 32.8 g/dL (30-55); Mean Corpuscular Hemoglobin 28.7 pg (27-33); Mean Corpuscular Volume 87.5 fl (85-98); Mean Platelet Volume 11.1 fL (7.4-10.4); Monocytes # 0.8 10^3/uL (0.2-0.9); Monocytes % 15.1 %; Neutrophils % 65.1 %; Nucleated Red Blood Cells % 0 %; Platelet Count 178 10^3/cmm (157-399); Red Blood Count 5.61 10^6/uL (3.85-5.65); Red Cell Distribution Width 13.8 % (12.1-15.1); White Blood Count 5.22 10^3/uL (3.29-11.43)
[2023-10-06 12:50] LABS: Alanine Aminotransferase 33 U/L (0-33); Albumin Level 4.5 g/dL (3.5-5.2); Alkaline Phosphatase 91 U/L (35-105); Anion Gap 17.2 (5-19); Aspartate Amino Transferase 29 U/L (0-32); Blood Urea Nitrogen 15 mg/dL (8-23); Calcium 9.6 mg/dL (8.5-10.5); Carbon Dioxide 26 mmol/L (22-29); Chloride 98 mmol/L (98-107); Glucose 119 mg/dL (65-115); Osmolality Calculated 286 mOsm/kg (285-295); Potassium 4.2 mmol/L (3.5-5.1); Sodium 137 mmol/L (136-145); Total Bilirubin 0.3 mg/dL (0.15-1.2); Total Protein 7.5 g/dL (6.6-8.7)
[2023-10-06 13:09] LABS: Influenza A by IFA negative (Negative); Influenza B by IFA negative (Negative)
[2023-10-06 14:03] VITALS: BP 143/62; PULSE 88; RESP 18; O2SAT 96
== END 2023-10-06 14:04 | disposition home or self-care (01) ==
PROVIDERS: Emergency Medicine; Emergency Provider Family Medicine; PCP Internal Medicine
DX: U07.1 COVID-19 (principal); Z87.891 Personal history of nicotine dependence; I10 Essential (primary) hypertension; G30.9 Alzheimer's disease, unspecified; F02.80 Dementia in other diseases classified elsewhere, unspecified severity, without behavioral disturbance, psychotic disturbance, mood disturbance, and anxiety
CPT/HCPCS: 71045; 80053; 81001; 85025; 87804; 96360; 99284; J7040

== ENCOUNTER 2023-11-03 11:00 | Emergency (ER) | payer MEDICARE, OTHER, MEDICAID, SELFPAY ==
[2023-11-03 11:06] VITALS: BP 131/99; PULSE 73; RESP 15; TEMP 36.9; O2SAT 97; BMI 25.6
[2023-11-03 11:37] LABS: Basophils # 0.1 10^3/uL (0.0-0.1); Basophils % 0.8 %; Eosinophils # 0.1 10^3/uL (0.0-0.8); Eosinophils % 1.5 %; Lymphocytes # 1.5 10^3/uL (0.8-4.8); Lymphocytes % 22.1 %; Mean Corpuscular HGB Conc 33.2 g/dL (30-55); Mean Corpuscular Hemoglobin 28.2 pg (27-33); Mean Corpuscular Volume 85.1 fl (85-98); Mean Platelet Volume 10.1 fL (7.4-10.4); Monocytes # 0.6 10^3/uL (0.2-0.9); Monocytes % 8.5 %; Neutrophils # 4.41 10^3/uL (1.8-7.7); Neutrophils % 66.8 %; Nucleated Red Blood Cells % 0 %; Platelet Count 335 10^3/cmm (157-399); Red Blood Count 5.17 10^6/uL (3.85-5.65); Red Cell Distribution Width 13.1 % (12.1-15.1)
--- NOTE | 2023-11-03 11:41 | CTR_ITS ---
PROCEDURE INFORMATION: Exam: CT Abdomen And Pelvis With Contrast Exam date and time: 11/03/2023 12:38 PM Age: 77 years old Clinical indication: Abdominal pain; Localized; Prior surgery; Surgery date: 6+ months; Surgery type: Stimulators; Patient HX: C/O lower abd pain TECHNIQUE: Imaging protocol: Computed tomography of the abdomen and pelvis with contrast. Radiation optimization: All CT scans at this facility use at least one of these dose optimization techniques: automated exposure control; mA and/or kV adjustment per patient size (includes targeted exams where dose is matched to clinical indication); or iterative reconstruction. Contrast material: OMNI 350; Contrast volume: 100 ml; Contrast route: INTRAVENOUS (IV); REPORTING DATA: Count of CT and Cardiac NM exams in prior 12 months: This patient has received 4 known CTs and 0 known cardiac nuclear medicine studies in the 12 months prior to the current study. COMPARISON: CR XR chest 2V* [id number] 10/25/2023 10:07 AM RADIATION DOSE METRICS: Total DLP (mGy-cm): 315.83 FINDINGS: Diaphragm: Small hiatal hernia. Liver: Tiny cysts within the liver. Gallbladder and bile ducts: Normal. No calcified stones. No ductal dilation. Pancreas: Normal. No ductal dilation. Spleen: Normal. No splenomegaly. Adrenal glands: Normal. No mass. Kidneys and ureters: Tiny renal cysts. Stomach and bowel: Unremarkable. No obstruction. No mucosal thickening. Appendix: No evidence of appendicitis. Intraperitoneal space: Unremarkable. No free air. No significant fluid collection. Vasculature: Unremarkable. No abdominal aortic aneurysm. Lymph nodes: Unremarkable. No enlarged lymph nodes. Urinary bladder: Questionable thickening of the wall of the nearly empty urinary bladder. Reproductive: Prior hysterectomy. Bones/joints: Unremarkable. No acute fracture. Soft tissues: Unremarkable. CT/CT abdomen pelvis w con* [id number] IMPRESSION: No acute subdiaphragmatic pathology. COMMENTS: Consistent with the [employer]'s Incidental Findings Committee white paper (J Am Nhung Radiol 2018): Any incidental renal lesion less than 1 cm or classified as too small to characterize, or any incidental cystic renal lesion characterized as simple-appearing, is likely benign. No follow-up imaging is recommended for these lesions per consensus recommendations based on imaging criteria.
[2023-11-03 11:45] LABS: Alanine Aminotransferase 13 U/L (0-33); Albumin Level 3.9 g/dL (3.5-5.2); Alkaline Phosphatase 102 U/L (35-105); Anion Gap 14.7 (5-19); Aspartate Amino Transferase 36 U/L (0-32); Blood Urea Nitrogen 17 mg/dL (8-23); Calcium 9.6 mg/dL (8.5-10.5); Carbon Dioxide 28 mmol/L (22-29); Chloride 99 mmol/L (98-107); Globulin 3.4 g/dL (1.3-4.6); Glucose 115 mg/dL (65-115); Lipase 18 U/L (13-60); Osmolality Calculated 288 mOsm/kg (285-295); Potassium 3.7 mmol/L (3.5-5.1); Sodium 138 mmol/L (136-145); Total Bilirubin 0.4 mg/dL (0.15-1.2); Total Protein 7.3 g/dL (6.6-8.7)
[2023-11-03 11:59] VITALS: BP 142/53; RESP 16; O2SAT 97
--- NOTE | 2023-11-03 12:15 | ED_ITS ---
HPI - Abdominal Pain 2 General: Chief Complaint: Abdominal Pain Stated Complaint: juan francisco prasad abd pain Time Seen by Provider: 11/03/23 11:35 Source: patient Mode of arrival: ambulatory Limitations: no limitations History of Present Illness: 77-year-old female states she been havin g abdominal pain over the last 2 days states that her lower abdomen radiates to both flanks. States she has been constipated over the last 2 to 3 days denies any vomiting she denies any fevers denies any worsening improving factors. States it seems to come in waves and is crampy pain is currently a 2 out of 10 Associated Symptoms: Reports constipation; Denies chills, diarrhea, dysuria, fever(s), nausea and vomiting Review of Systems 2 Const: Denies: fever(s), chills, body aches or change in appetite ENMT: Denies: throat pain or dental pain Card: Denies: chest pain Resp: Denies: dyspnea GI: Reports: abdominal pain and constipation; Denies: nausea, vomiting or diarrhea : Denies: dysuria Musc: Denies: neck pain or back pain Skin/Breast: Denies: rash Neuro: Denies: headache(s) PFSH ED 2 PFSH: Medical History Neurocognitive disorder Hypertension Aortic regurgitation Alzheimer disease Shortness of breath An EKG was done which revealed sinus rhythm with poor R wave progression. Possible old septal [place]. Some nonspecific ST-T changes in the lateral leads Rosacea Surgical History H/O neck surgery H/O: hysterectomy Family History Other No pertinent family history in first degree relatives Social History Smoking and tobacco/nicotine status: former use of tobacco/nicotine Alcohol intake: never Substance/Drug Use: never Physical Exam 2 Const: COMMON NORMALS: no acute distress, patient oriented x3 and healthy appearing HENMT: COMMON NORMALS: normocephalic and atraumatic HEAD & SCALP: n ormocephalic and atraumatic Eye: COMMON NORMALS: Equal, round and reactive pupils present and EOMs intact bilaterally PUPIL: Yes Equal, round and reactive pupils present Neck/C-Spine: COMMON NORMALS: full ROM and supple Chest: COMMONS NORMALS: normal inspection of the chest and normal palpation of entire chest wall Resp: COMMON NORMALS: normal respiratory effort, No retractions, No use of accessory muscles and clear to auscultation bilaterally AUSCULTATION: clear to auscultation bilaterally Cardio: COMMON NORMALS: regular rate, regular rhythm and No murmurs present (Cardio) RATE: regular rate RHYTHM: regular rhythm GI: COMMON NORMALS: Normal to inspection, nondistended, normoactive bowel sounds present, Soft to palpation, non-tender and no masses PALPATION: Yes Soft to palpation Extremity: COMMON NORMALS: normal to inspection and full ROM Neuro: COMMON NORMALS: patient oriented x3, moves all extremities and no focal motor deficits Psych: COMMON NORMALS: mental status grossly normal, Normal thought process present and cooperative THOUGHT PROCESS: Normal thought process present Skin: COMMON NORMALS: no rashes or lesions noted and no wounds GENERAL SKIN EXAM: no rashes or lesions noted Course 2 Vital Signs: Vital signs: Vital Signs Temperature 98.4 F 11/03/23 11:06 Pulse Rate 73 11/03/23 11:06 Respiratory Rate 16 11/03/23 11:59 Blood Pressure 139/45 11/03/23 13:06 Pulse Oximetry 98 11/03/23 13:06 Oxygen Delivery Me thod Room Air 11/03/23 13:06 MDM - Abdominal Pain Medical Decision Making Patient presents here with abdominal pain CT blood work here is all normal patient is well-appearing here he is stable for discharge follow-up PCP return if worsening. Medical Records I reviewed the patient's medical records. Lab Data I reviewed the patient's lab results. 11/03/23 11:20 11/03/23 11:20 Labs/Radiology: Radiology Impressions Abdomen/Pelvis CT 11/03/23 11:41 IMPRESSION: No acute subdiaphragmatic pathology. COMMENTS: Consistent with the [place] [employer]'s Incidental Findings Committee white paper (J Am Nhung Radiol 2018): Any incidental renal lesion less than 1 cm or classified as too small to characterize, or any incidental cystic renal lesion characterized as simple-appearing, is likely benign. No follow-up imaging is recommended for these lesions per consensus recommendations based on imaging criteria. Laboratory Results WBC 6.60 10^3/uL (3.29-11.43) 11/03/23 11:20 RBC 5.17 10^6/uL (3.85-5.65) 11/03/23 11:20 Hgb 14.60 g/dL (11.27-16.99) 11/03/23 11:20 Hct 44.0 % (36-47) 11/03/23 11:20 MCV 85.1 fl (85-98) 11/03/23 11:20 MCH 28.2 pg (27-33) 11/03/23 11:20 MCHC 33.2 g/dL (30-55) 11/03/23 11:20 RDW 13.1 % (12.1-15.1) 11/03/23 11:20 Plt Count 335 10^3/cmm (157-399) 11/03/23 11:20 MPV 10.1 fL (7.4-10.4) 11/03/23 11:20 Neut % (Auto) 66.8 % 11/03/23 11:20 Lymph % (Auto) 22.1 % 11/03/23 11:20 [place] % (Auto) 8.5 % 11/03/23 11:20 Eos % (Auto) 1.5 % 11/03/23 11:20 Baso % (Auto) 0.8 % 11/03/23 11:20 Neut # (Auto) 4.41 10^3/uL (1.8-7.7) 11/03/23 11:20 Lymph # (Auto) 1.5 10^3/uL (0.8-4.8) 11/03/23 11:20 [place] # (Auto) 0.6 10^3/uL (0.2-0.9) 11/03/23 11:20 Eos # (Auto) 0.1 10^3/uL (0.0-0.8) 11/03/23 11:20 Baso # (Auto) 0.1 10^3/uL (0.0-0.1) 11/03/23 11:20 Nucleated RBC % (auto) 0 % 11/03/23 11:20 Nucleated RBCs # 0.0 /100WBC 11/03/23 11:20 Sodium 138 mmol/L (136-145) 11/03/23 11:20 Potassium 3.7 mmol/L (3.5-5.1) 11/03/23 11:20 Chloride 99 mmol/L (98-107) 11/03/23 11:20 Carbon Dioxide 28 mmol/L (22-29) 11/03/23 11:20 Anion Gap 14.7 (5-19) 11/03/23 11:20 BUN 17 mg/dL (8-23) 11/03/23 11:20 Creatinine 0.7 mg/dL (0.5-0.9) 11/03/23 11:20 GFR Calculation Not Reportable 11/03/23 11:20 Glucose 115 mg/dL (65-115) 11/03/23 11:20 Calculated Osmolality 288 mOsm/kg (285-295) 11/03/23 11:20 Calcium 9.6 mg/dL (8.5-10.5) 11/03/23 11:20 Total Bilirubin 0.4 mg/dL (0.15-1.2) 11/03/23 11:20 AST 36 U/L (0-32) H 11/03/23 11:20 ALT 13 U/L (0-33) 11/03/23 11:20 Alkaline Phosphatase 102 U/L (35-105) 11/03/23 11:20 Total Protein 7.3 g/dL (6.6-8.7) 11/03/23 11:20 Albumin 3.9 g/dL (3.5-5.2) 11/03/23 11:20 Globulin 3.4 g/dL (1.3-4.6) 11/03/23 11:20 Lipase 18 U/L (13-60) 11/03/23 11:20 Urine Color Yellow (Yellow) 11/03/23 11:55 Urine Appearance Sl hazy (CLEAR) A 11/03/23 11:55 Urine pH 5 (5-7) 11/03/23 11:55 Ur Specific [place] 1.020 (1.005-1.030) 11/03/23 11:55 Urine Protein Trace (Negative) 11/03/23 11:55 Urine Glucose (UA) Norm (Normal) 11/03/23 11:55 Urine Ketones Negative (Negative) 11/03/23 11:55 Urine Blood Neg (Negative) 11/03/23 11:55 Urine Nitrate Negative (Negative) 11/03/23 11:55 Urine Bilirubin Neg (Negative) 11/03/23 11:55 Urine Urobilinogen 1 mg/dL (Negative) H 11/03/23 11:55 Ur Leukocyte Esterase Trace (Negative) H 11/03/23 11:55 Urine RBC 0-4 /hpf (0-2) H 11/03/23 11:55 Urine WBC 0-4 /hpf (0-5) H 11/03/23 11:55 Ur Squamous Epith Cells 5-10 /hpf (0-5) H 11/03/23 11:55 Amorphous Sediment Not Reportable 11/03/23 11:55 Urine Bacteria 1+ /hpf (NONE) H 11/03/23 11:55 Urine Mucus 2+ /hpf 11/03/23 11:55 All radiology interpretation(s) finalized by discharge Discharge Plan Discharge Patient Disposition: Home Clinical Impression: Abdominal pain Condition: Stable Prescriptions: New ondansetron 4 mg tablet,disintegrating 4 mg PO Q6H PRN (Reason: nausea and vomiting) Qty: 14 0RF dicyclomine 20 mg tablet 20 mg PO TID PRN (Reason: abdominal pain) Qty: 14 0RF No Action donepezil 10 mg tablet 10 mg PO QPM olanzapine 5 mg tablet 5 mg PO DAILY lisinopril 5 mg tablet 5 mg PO DAILY Qty: 14 0RF venlafaxine 75 mg capsule,extended release 24hr 75 mg PO DAILY minocycline 50 mg capsule 50 mg PO DAILY Suboxone 8-2 mg film 1 film sublingual BID ibuprofen 200 mg Tablet 400 mg PO Q6H PRN (Reason: Pain) Discharge Orders: Discharge ED (Routine); Ordered 11/03/23 Ordered By: Jose F Whitehead Referrals: Juwan Chavez MD [Primary Care Provider] - 1-3 days Discharge Diet: Advance as tolerated Discharge Activity: Resume usual activity Patient Instructions: Abdominal Pain (ED) Coding Level of Care Code ED Chef Kitchen Manager for Pilar Heredia
[2023-11-03] MEDS: iohexol 350 mg/mL 500 mL Btl (per mL) IV (12:41)
[2023-11-03 12:52] LABS: Blood Urine Neg (Negative); Glucose Urine UA Norm (Normal); Ketones Urine Negative (Negative); Protein Urine Trace (Negative); Urine Appearance SL Hazy (CLEAR); Urine Color Yellow (Yellow); pH Urine 5 (5-7)
[2023-11-03 12:53] LABS: Add Urine Culture? No; Add Urine Microscopic? YES; Bacteria Urine 1+ /hpf; Bilirubin Urine Neg (Negative); Leukocyte Esterase Urine Trace (Negative); Mucus Urine 2+ /hpf; Nitrate Urine Negative (Negative); RBC Urine 0-4 /hpf (0-2); Urobilinogen Urine 1 mg/dL (Negative); WBC Urine 0-4 /hpf (0-5)
[2023-11-03 13:06] VITALS: BP 139/45; O2SAT 98
[2023-11-03 13:48] VITALS: BP 147/53; PULSE 67; O2SAT 99
== END 2023-11-03 13:49 | disposition home or self-care (01) ==
PROVIDERS: Emergency Provider Emergency Medicine; PCP Family Medicine
DX: R10.30 Lower abdominal pain, unspecified (principal); Z87.891 Personal history of nicotine dependence; I10 Essential (primary) hypertension; G30.9 Alzheimer's disease, unspecified; F02.80 Dementia in other diseases classified elsewhere, unspecified severity, without behavioral disturbance, psychotic disturbance, mood disturbance, and anxiety
CPT/HCPCS: 36415; 74177; 80053; 81001; 83690; 85025; 99285; Q9967

== ENCOUNTER 2023-12-02 13:08 | Outpatient (CLI) | payer MEDICARE, OTHER, MEDICAID, SELFPAY ==
--- NOTE | 2023-12-02 13:18 | XR_ITS ---
WS: [email or web address] XR hip LT 2-3V wo/w pel* [id number] REASON FOR EXAM: FALL/L THIGH PAIN FINDINGS: No fracture or focal bone lesion. Minimal narrowing of the joint space with mild subchondral sclerosis and osteophytosis of the acetabu lum. No soft tissue abnormality. IMPRESSION: No acute abnormality. Minimal osteoarthritis of the left hip.
--- NOTE | 2023-12-02 13:18 | XR_ITS ---
WS: [email or web address] XR femur LT min 2V* [id number] REASON FOR EXAM: FALL/L THIGH PAIN FINDINGS: The left femur is intact without fracture or periosteal reaction or focal bone lesion. No soft tissue abnormality identified. IMPRESSION: No acute abnormality.
--- NOTE | 2023-12-02 13:18 | XR_ITS ---
WS: [email or web address] XR lumbar spine 2-3V* [id number] REASON FOR EXAM: FALL/ACUTE LOW BACK PAIN FINDINGS: Posterior battery packs with leads extending superiorly. There is a superior endplate deformity of the L1 vertebral body which could represent an acute/subacu te compression fracture. There is a mild compression deformity of the superior endplate of L2 and there is a step-off in the c ortical margin of the inferior endplate. This may represent an acute or subacute compression fracture . L3 has a more subtle deformity however the findings may also represent an acute or subacute compressi on fracture. Narrowing of the disc spaces at L2-L3 and L5-S1. IMPRESSION: Possible acute/subacute compression fractures L1, L2, and L3.
== END 2023-12-02 13:09 | disposition home or self-care (01) ==
LOC: RAD 13:12
PROVIDERS: PCP Family Medicine; Visit Provider Family Medicine
DX: M54.50 Low back pain, unspecified (principal); M16.12 Unilateral primary osteoarthritis, left hip; X58.XXXA Exposure to other specified factors, initial encounter
CPT/HCPCS: 72100; 73502; 73552

== ENCOUNTER 2023-12-21 14:05 | Outpatient (CLI) | payer MEDICARE, OTHER, MEDICAID, SELFPAY ==
--- NOTE | 2023-12-21 14:12 | CT_ITS ---
WS: [email or web address] CT LUMBAR SPINE, noncontrast. HISTORY: COMPRESSION FX OF LSPINE TECHNIQUE: Contiguous 2.0 mm axial imaging are performed. Sagittal and coronal reformats are submitte d and reviewed. All CT scans at [facility] use at least one of these dose optimization techni ques: automated exposure control; mA and/or kV adjustment per patient size (includes targeted exams w here dose is matched to clinical indication); or iterative reconstruction. IV contrast: None DLP: 330.82 mGy.cm COMPARISON: Lumbar spine radiograph 12/02/[address] 05/29/2016 Mild RIGHT curvature and straightening of the lumbar spine. Less than 2 mm anterolisthesis of L4. The re is very minimal anterior wedging of L1. Anterior wedging is slightly asymmetric and greatest on th e LEFT lateral vertebral body with an associated Schmorl's node. There is no retropulsion. No definit e fractures are identified at L2 and L3. That does not and exclude a small amount of marrow or trabec ular injury which would be identified by MRI potentially. L1-2: No stenosis or herniation. L2-3: Mild annular disc bulging. Mild disc encroachment upon the ventral thecal sac and subarticular recesses. No high-grade stenosis. L3-4: Mild annular disc bulging. Shallow RIGHT foraminal disc protrusion. There is mild disc encroach ment upon the traversing L4 nerve roots but no stenosis. Mild facet and ligamentum flavum hypertrophy . L4-5: Partially calcified disc. Moderate bilateral facet joint arthritis. No stenosis. L5-S1: Mild disc bulging encroaching upon the ventral thecal sac. There is a broad-based disc protrus ion. Marked facet joint arthritis. Mild LEFT foraminal stenosis predominantly due to osteophytes and facet disease. Moderate scattered calcified plaque with within the abdominal aorta. IMPRESSION: 1. Minimal, less than 10% wedging of L1. Age indeterminate but with history of a recent fall this is probably related to an acute fracture. 2. No definite fractures are identified at L2 or L3 as suspected radiographically. For further evalu ation MRI would be more sensitive for subtle marrow edema. 3. Multilevel facet joint arthritis. Most significant at L4-5 and L5-S1. 4. No high-grade central stenosis. 5. Mild LEFT foraminal stenosis at L5-S1.
== END 2023-12-21 14:06 | disposition home or self-care (01) ==
LOC: RAD 14:06
PROVIDERS: PCP Family Medicine; Visit Provider Family Medicine
DX: M48.56XA Collapsed vertebra, not elsewhere classified, lumbar region, initial encounter for fracture (principal); Z91.81 History of falling; M47.817 Spondylosis without myelopathy or radiculopathy, lumbosacral region; M48.07 Spinal stenosis, lumbosacral region
CPT/HCPCS: 72131

== ENCOUNTER 2024-09-05 18:49 | Inpatient (IN) | payer MEDICARE, OTHER, SELFPAY ==
[2024-09-05] VITALS (16 sets, daily range): BP systolic 144–198; BP diastolic 54–86; PULSE 63–114; RESP 18–24; TEMP 36.7–36.8; O2SAT 98–100; BMI 25.0
--- NOTE | 2024-09-05 18:56 | XRR_ITS ---
PROCEDURE INFORMATION: Exam: XR Chest Exam date and time: 09/05/2024 7:14 PM Age: 78 years old Clinical indication: Pain; Chest pressure; Prior surgery; Surgery date: 6+ months; Surgery type: Iggy stimulators; Additional info: Cp TECHNIQUE: Imaging protocol: Radiologic exam of the chest. Views: 1 view. COMPARISON: CR XR chest 2V* [id number] 10/25/2023 10:07 AM FINDINGS: Tubes, catheters and devices: Vagal stimulator. Lungs: Unremarkable. No consolidation. Pleural spaces: Unremarkable. No pleural effusion. No pneumothorax. Heart/Mediastinum: Unremarkable. No cardiomegaly. Bones/joints: Unremarkable. XR/XR chest 1V portable [id number] IMPRESSION: Negative for infiltrate.
--- NOTE | 2024-09-05 18:56 | ECG_ITS ---
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 Measurements Intervals [place] Rate: 69 P: 73 WI: 176 QRS: 36 QRSD: 87 T: 77 QT: 408 QTc: 440 Interpretive Statements SINUS RHYTHM ANTEROSEPTAL MYOCARDIAL INFARCTION , OF INDETERMINATE AGE [40+ ms Q WAVE IN V1-V4] Compared to ECG 07/16/2023 02:53:18 No significant changes Electronically Signed On 09-06-2024 17:00:03 CDT by Reid Barnett M.D. [id number]
--- NOTE | 2024-09-05 19:17 | ECG_ITS ---
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 Measurements Intervals [place] Rate: 80 P: 84 VT: 170 QRS: 56 QRSD: 89 T: 77 QT: 395 QTc: 456 Interpretive Statements SINUS RHYTHM WITH OCCASIONAL VENTRICULAR PREMATURE COMPLEXES Compared to ECG 09/05/2024 19:07:49 Ventricular premature complex(es) now present Myocardial infarct finding no longer present Electronically Signed On 09-06-2024 18:08:02 CDT by Reid Barnett M.D. [email or web address]
--- NOTE | 2024-09-05 19:28 | ED_ITS ---
HPI - Arrhythmia/Palpitations 2 General: Chief Complaint: Arrhythmia/Palpitations Stated Complaint: high bp clammy hot/cold weak Time Seen by Provider: 09/05/24 19:21 Source: patient Mode of arrival: ambulatory History of Present Illness: 78-year-old female states that she has b een having hypertension since last night daughter states she is giving her extra dose of lisinopril her blood pressures been running in the 200s patient states she is felt clammy she had some slight fatigue as well. She denies any new shortness of breath she denies any chest pain. Denies any history of heart disease. Associated symptoms: Deny nausea or vomiting Related Data Home Medications Medication Instructions Recorded Confirmed donepezil 10 mg tablet 10 mg PO QPM 12/11/19 11/03/23 olanzapine 5 mg tablet 5 mg PO DAILY 06/06/20 11/03/23 venlafaxine 75 mg capsule,extended 75 mg PO DAILY 08/08/23 11/03/23 release 24 hr buprenorphine 8 mg-naloxone 2 mg 1 film sublingual BID 11/03/23 11/03/23 sublingual film (Suboxone) ibuprofen 200 mg tablet 400 mg PO Q6H PRN Pain 11/03/23 11/03/23 minocycline 50 mg capsule 50 mg PO DAILY 11/03/23 11/03/23 Previous Rx's Medication Instructions Recorded lisinopril 5 mg tablet 5 mg PO DAILY #14 tabs 07/16/23 dicyclomine 20 mg tablet 20 mg PO TID PRN abdominal pain 11/03/23 #14 tabs ondansetron 4 mg disintegrating 4 mg PO Q6H PRN nausea and 11/03/23 tablet vomiting #14 tabs Allergies Allergy/AdvReac Type Severity Reaction Status Date / Time No Known Allergies Allergy Verified 09/05/24 19:27 Review of Systems 2 Const: Reports: fatigue; Denies: fever(s), chills, body aches or change in appetite Eyes: Denies: blurry vision or eye discomfort ENMT: Denies: throat pain or dental pain Card: Denies: chest pain Resp: Denies: dyspnea GI: Denies: abdominal pain, nausea, vomiting or diarrhea Musc: Denies: neck pain or back pain Skin/Breast: Denies: rash Neuro: Denies: headache(s) PFSH ED 2 PFSH: Medical History Neurocognitive disorder Hypertension Aortic regurgitation Alzheimer disease Shortness of breath An EKG was done which revealed sinus rhythm with poor R wave progression. Possible old septal [place]. Some nonspecific ST-T changes in the lateral leads Rosacea Surgical History H/O neck surgery H/O: hysterectomy Family History Other No pertinent family history in first degree relatives Social History Smoking and tobacco/nicotine status: former use of tobacco/nicotine Alcohol intake: never Substance/Drug Use: never Physical Exam 2 Const: COMMON NORMALS: no acute distress, patient oriented x3 and healthy appearing HENMT: COMMON NORMALS: normocephalic and atraumatic HEAD & SCALP: n ormocephalic and atraumatic Eye: COMMON NORMALS: conjunctivae normal CONJUNCTIVA: Yes conjunctivae normal Neck/C-Spine: COMMON NORMALS: full ROM and supple Chest: COMMONS NORMALS: normal inspection of the chest and normal palpation of entire chest wall Resp: COMMON NORMALS: normal respiratory effort, No retractions, No use of accessory muscles and clear to auscultation bilaterally AUSCULTATION: clear to auscultation bilaterally Cardio: COMMON NORMALS: regular rate, regular rhythm and No murmurs present (Cardio) RATE: regular rate RHYTHM: regular rhythm GI: COMMON NORMALS: Normal to inspection, nondistended, normoactive bowel sounds present, Soft to palpation, non-tender and no masses PALPATION: Yes Soft to palpation Extremity: COMMON NORMALS: normal to inspection and full ROM Neuro: COMMON NORMALS: patient oriented x3, moves all extremities and no focal motor deficits Psych: COMMON NORMALS: mental status grossly normal, Normal thought process present and cooperative THOUGHT PROCESS: Normal thought process present Skin: COMMON NORMALS: no rashes or lesions noted and no wounds GENERAL SKIN EXAM: no rashes or lesions noted Course 2 Vital Signs: Vital signs: Vital Signs Temperature 98.0 F 09/05/24 19:08 Pulse Rate 65 09/05/24 21:29 Respiratory Rate 18 09/05/24 19:08 Blood Pressure 168/73 09/05/24 21:29 Pulse Oximetry 100 09/05/24 21:29 Oxygen Delivery Me thod Room Air 09/05/24 21:29 MDM - Arrhythmia/Palpitations Medical Decision Making Masoud with hypertensive emergency she does have some ST depression on the EKG I am did discuss this with county treasurer Dr. Albright she has no signs of ST elevation she had no chest pain originally here is likely due to her high blood pressure did start on a nitro drip she feels much improved on the nitro drip her blood pressure is improving as well I spoke to the hospitalist will admit at this time. Medical Records I reviewed the patient's medical records. Lab Data I reviewed the patient's lab results. 09/05/24 19:38 09/05/24 19:38 Radiology Impressions Chest X-Ray 09/05/24 18:56 IMPRESSION: Negative for infiltrate. Laboratory Results WBC 7.42 10^3/uL (3.29-11.43) 09/05/24 19:38 RBC 5.36 10^6/uL (3.85-5.65) 09/05/24 19:38 Hgb 15.30 g/dL (11.27-16.99) 09/05/24 19:38 Hct 45.7 % (36-47) 09/05/24 19:38 MCV 85.3 fl (85-98) 09/05/24 19:38 MCH 28.5 pg (27-33) 09/05/24 19:38 MCHC 33.5 g/dL (30-55) 09/05/24 19:38 RDW 12.6 % (12.1-15.1) 09/05/24 19:38 Plt Count 262 10^3/cmm (157-399) 09/05/24 19:38 MPV 9.6 fL (7.4-10.4) 09/05/24 19:38 Neut % (Auto) 58.9 % 09/05/24 19:38 Lymph % (Auto) 32.7 % 09/05/24 19:38 Lee % (Auto) 6.1 % 09/05/24 19:38 Eos % (Auto) 1.3 % 09/05/24 19:38 Baso % (Auto) 0.7 % 09/05/24 19:38 Neut # (Auto) 4.37 10^3/uL (1.8-7.7) 09/05/24 19:38 Lymph # (Auto) 2.4 10^3/uL (0.8-4.8) 09/05/24 19:38 Lee # (Auto) 0.5 10^3/uL (0.2-0.9) 09/05/24 19:38 Eos # (Auto) 0.1 10^3/uL (0.0-0.8) 09/05/24 19:38 Baso # (Auto) 0.1 10^3/uL (0.0-0.1) 09/05/24 19:38 Nucleated RBC % (auto) 0 % 09/05/24 19:38 Nucleated RBCs # 0.0 /100WBC 09/05/24 19:38 Sodium 137 mmol/L (136-145) 09/05/24 19:38 Potassium 4.4 mmol/L (3.5-5.1) 09/05/24 19:38 Chloride 98 mmol/L (98-107) 09/05/24 19:38 Carbon Dioxide 26 mmol/L (22-29) 09/05/24 19:38 Anion Gap 17.4 (5-19) 09/05/24 19:38 BUN 31 mg/dL (8-23) H 09/05/24 19:38 Creatinine 1.0 mg/dL (0.5-0.9) H 09/05/24 19:38 GFR Calculation Not Reportable 09/05/24 19:38 Glucose 127 mg/dL (65-115) H 09/05/24 19:38 Calculated Osmolality 292 mOsm/kg (285-295) 09/05/24 19:38 Calcium 9.8 mg/dL (8.5-10.5) 09/05/24 19:38 Total Bilirubin 0.4 mg/dL (0.15-1.2) 09/05/24 19:38 AST 22 U/L (0-32) 09/05/24 19:38 ALT 19 U/L (0-33) 09/05/24 19:38 Alkaline Phosphatase 89 U/L (35-105) 09/05/24 19:38 Troponin T Baseline 38 ng/L (0-10) H 09/05/24 19:38 Total Protein 7.4 g/dL (6.6-8.7) 09/05/24 19:38 Albumin 4.8 g/dL (3.5-5.2) 09/05/24 19:38 Globulin 2.6 g/dL (1.3-4.6) 09/05/24 19:38 Lipase 20 U/L (13-60) 09/05/24 19:38 All radiology interpretation(s) finalized by discharge Discharge Plan Discharge Patient Disposition: Admitted As Inpatient Clinical Impression: Hypertensive emergency Condition: Stable Prescriptions: No Action donepezil 10 mg tablet 10 mg PO QPM olanzapine 5 mg tablet 5 mg PO DAILY lisinopril 5 mg tablet 5 mg PO DAILY Qty: 14 0RF venlafaxine 75 mg capsule,extended release 24hr 75 mg PO DAILY minocycline 50 mg capsule 50 mg PO DAILY Suboxone 8-2 mg film 1 film sublingual BID ibuprofen 200 mg Tablet 400 mg PO Q6H PRN (Reason: Pain) ondansetron 4 mg tablet,disintegrating 4 mg PO Q6H PRN (Reason: nausea and vomiting) Qty: 14 0RF dicyclomine 20 mg tablet 20 mg PO TID PRN (Reason: abdominal pain) Qty: 14 0RF Referrals: Juwan Chavez MD [Primary Care Provider] - Coding Level of Care Code ED Design/Animation Instructor for Pilar Heredia
[2024-09-05] MEDS: hyDRALAzine 20 mg/mL INJ 1 mL 10 MG IVP ×2 (19:40→22:32)
[2024-09-05 19:43] LABS: Basophils # 0.1 10^3/uL (0.0-0.1); Basophils % 0.7 %; Eosinophils # 0.1 10^3/uL (0.0-0.8); Eosinophils % 1.3 %; Hematocrit 45.7 % (36-47); Lymphocytes # 2.4 10^3/uL (0.8-4.8); Lymphocytes % 32.7 %; Mean Corpuscular HGB Conc 33.5 g/dL (30-55); Mean Corpuscular Hemoglobin 28.5 pg (27-33); Mean Corpuscular Volume 85.3 fl (85-98); Mean Platelet Volume 9.6 fL (7.4-10.4); Monocytes # 0.5 10^3/uL (0.2-0.9); Monocytes % 6.1 %; Neutrophils # 4.37 10^3/uL (1.8-7.7); Neutrophils % 58.9 %; Nucleated Red Blood Cells % 0 %; Platelet Count 262 10^3/cmm (157-399); Red Blood Count 5.36 10^6/uL (3.85-5.65); Red Cell Distribution Width 12.6 % (12.1-15.1); White Blood Count 7.42 10^3/uL (3.29-11.43)
--- NOTE | 2024-09-05 19:55 | ECG_ITS ---
[facility] Test Date: 2024-09-05 Pat Name: Tiff Rose Department: Room: Gender: Female Public Stenographer: : 1945 Requested By: Jose F Whitehead Order Number: [id number] Jocelyn MD: Reid Barnett M.D. Measurements Intervals [place] Rate: 76 P: 97 MD: 199 QRS: 39 QRSD: 95 T: 79 QT: 384 QTc: 433 Interpretive Statements SINUS RHYTHM SEPTAL MYOCARDIAL INFARCTION , OF INDETERMINATE AGE [40+ ms Q WAVE IN V1/V2] Compared to ECG 09/05/2024 19:17:31 Myocardial infarct finding now present Ventricular premature complex(es) no longer present Electronically Signed On 09-06-2024 08:26:51 CDT by Reid Barnett M.D. [id number]
--- NOTE | 2024-09-05 19:58 | ECG_ITS ---
[employer] Test Date: 2024-09-05 Pat Name: Tiff Rose Department: Room: [facility] Gender: Female Head Resident: : 1945 Requested By: Sterling Bone Order Number: [id number] Jocelyn MD: Reid Barnett M.D. Measurements Intervals [place] Rate: 72 P: 90 DE: 211 QRS: 30 QRSD: 90 T: 76 QT: 381 QTc: 419 Interpretive Statements SINUS RHYTHM WITH FIRST DEGREE AV BLOCK SEPTAL MYOCARDIAL INFARCTION , OF INDETERMINATE AGE [40+ ms Q WAVE IN V1/V2] Compared to ECG 09/05/2024 19:55:04 First degree AV block now present Myocardial infarct finding still present Electronically Signed On 09-06-2024 16:59:20 CDT by Reid Barnett M.D. [id number]
[2024-09-05 20:03] LABS: Troponin(5th) Baseline 38 ng/L (0-10)
[2024-09-05 20:08] LABS: Alanine Aminotransferase 19 U/L (0-33); Albumin Level 4.8 g/dL (3.5-5.2); Alkaline Phosphatase 89 U/L (35-105); Blood Urea Nitrogen 31 mg/dL (8-23); Calcium 9.8 mg/dL (8.5-10.5); Carbon Dioxide 26 mmol/L (22-29); Chloride 98 mmol/L (98-107); Creatinine Clr Calc Pharmacy 40.0705; Globulin 2.6 g/dL (1.3-4.6); Glucose 127 mg/dL (65-115); Lipase 20 U/L (13-60); Osmolality Calculated 292 mOsm/kg (285-295); Sodium 137 mmol/L (136-145); Total Bilirubin 0.4 mg/dL (0.15-1.2); Total Protein 7.4 g/dL (6.6-8.7)
[2024-09-05] MEDS: nitroglycerin drip 50 MG/250 ML PREMIX IV (20:13)
[2024-09-05 20:27] LABS: Anion Gap 17.4 (5-19); Aspartate Amino Transferase 22 U/L (0-32); Potassium 4.4 mmol/L (3.5-5.1)
[2024-09-05 21:48] LABS: Troponin 5 2HR 47.56 ng/L (0-10); Troponin 5 2HR Delta 9.56 ABS# (0-10)
[2024-09-06] VITALS (61 sets, daily range): BP systolic 102–200; BP diastolic 44–111; PULSE 50–92; RESP 9–24; TEMP 36.6–36.9; O2SAT 94–100; BMI 25.2
[2024-09-06] MEDS: sodium chloride 0.9% 1,000 ML 999 ML IV (00:21)
[2024-09-06] MEDS: metoprolol tartrate 1 mg/1 mL SDV 5 mL 5 MG IVP (00:23)
--- NOTE | 2024-09-06 00:50 | P.HP_ITS ---
Providers/Chief Complaint 2 Admitting Physician: Sterling Reynolds MD Primary Care Provider: Juwan Chavez MD Chief Complaint: high bp clammy hot/cold weak History of Present Illness Tiff Rose is a 78 year old female with dementia has been checked with her daughter at home with hypertension. She is not sure how high it has been but tells me she took 3 lisinopril 5 mg yesterday and 2 the day of admission. She does take ibuprofen but only 1-2 a day of the 400 mg. She does not take 400 every 6. She denies that her venlafaxine is a new medication and does not think she has missed any of the Suboxone. Patient denies that she was ever a drug user or street pill user and is not sure why she was started on Suboxone. Patient denies chest pain currently but did have some chest pain and a mild bump in troponin. She is admitted for rule out [place]. She does not think she had recent echocardiogram Review of Systems 2 Narrative: Patient with known memory loss. She states she is assisted by her daughter Patient denies current chest pain or difficulty breathing Medications/Allergies Home Medications Medication Instructions Recorded Confirmed Last Taken Type donepezil 10 mg tablet 10 mg PO QPM 12/11/19 11/03/23 11/02/23 History olanzapine 5 mg tablet 5 mg PO DAILY 06/06/20 11/03/23 11/03/23 History lisinopril 5 mg tablet 5 mg PO DAILY #14 tabs 07/16/23 11/03/23 11/03/23 Rx venlafaxine 75 mg capsule,extended 75 mg PO DAILY 08/08/23 11/03/23 11/03/23 History release 24 hr buprenorphine 8 mg-naloxone 2 mg 1 film sublingual BID 11/03/23 11/03/23 11/03/23 History sublingual film (Suboxone) dicyclomine 20 mg tablet 20 mg PO TID PRN abdominal pain 11/03/23 Unknown Rx #14 tabs ibuprofen 200 mg tablet 400 mg PO Q6H PRN Pain 11/03/23 11/03/23 Unknown History minocycline 50 mg capsule 50 mg PO DAILY 11/03/23 11/03/23 11/03/23 History ondansetron 4 mg disintegrating 4 mg PO Q6H PRN nausea and 12/27/23 Unknown Rx tablet vomiting #14 tabs Allergies Allergy/AdvReac Type Severity Reaction Status Date / Time No Known Allergies Allergy Verified 09/05/24 19:27 PFSH Acute 2 PFSH: Medical History Neurocognitive disorder Hypertension Aortic regurgitation Alzheimer disease Shortness of breath An EKG was done which revealed sinus rhythm with poor R wave progression. Possible old septal [place]. Some nonspecific ST-T changes in the lateral leads Rosacea Surgical History H/O neck surgery H/O: hysterectomy Family History Other No pertinent family history in first degree relatives Social History Smoking and tobacco/nicotine status: former use of tobacco/nicotine Alcohol intake: never Substance/Drug Use: never Vitals/I&O/Wt Last Vital Signs Temp 98.0 F 09/05/24 19:08 Pulse 79 09/05/24 23:26 Resp 18 09/05/24 19:08 BP 144/59 09/05/24 23:26 Pulse Ox 100 09/05/24 23:26 O2 Del Method Room Air 09/05/24 23:20 09/05/24 09/05/24 09/06/24 14:59 22:59 06:59 Intake Total 20.200 / 20.200 19.925 / 40.125 Balance 20.200 / 20.200 19.925 / 40.125 Weight last 48 hrs Weight 64 kg Weight 63.957 kg Physical Exam 2 Narrative: General well-developed well-nourished female in no acute cardiopulmonary stress she is alert and oriented to person and year but not the month. She was able to give history with mild difficulty and limited specifics CV regular rate and rhythm with a 4/6 systolic ejection murmur best heard at the right upper sternal border Lungs clear to auscultation bilaterally Abdomen positive bowel sounds soft nontender Calves no asymmetry tenderness or edema. Data 09/05/24 19:38 09/05/24 19:38 A&P Assessment and plan (1) Hypertension: Patient was on single agent lisinopril but only at 5 mg a day will increase to 20 mg a day and at metoprolol XL 25 mg daily wean nitroglycerin as tolerated. Patient denies med changes to her Suboxone or venlafaxine Qualifiers: Hypertension type: primary hypertension Qualified Code(s): I10 - Essential (primary) hypertension (2) Hypertensive emergency: Responded well to nitroglycerin (3) Alzheimer disease: Stable Attestations 2 Medical Necessity Statement*: Patient admitted to inpatient due to nitroglycerin drip. Anticipate that she will be here 2 midnights Time Spent in Patient Care: 45 minutes spent in evaluation and coord ination of care for this patient is a Coding Level of Care Code 14590 Diagnoses Essential hypertension I10 Hypertension type: primary hypertension Hypertensive emergency I16.1 Alzheimer disease G30.9; F02.80 Time Spent (min) 45
--- NOTE | 2024-09-06 00:56 | ECG_ITS ---
[facility] Test Date: 2024-09-05 Pat Name: Tiff Rose Department: Room: [facility]06 Gender: Female Covered Buckle Assembler: : 1945 Requested By: Jose F Whitehead Order Number: [id number] Jocelyn MD: Reid Barnett M.D. Measurements Intervals [place] Rate: 71 P: 81 NV: 197 QRS: 22 QRSD: 86 T: 69 QT: 386 QTc: 420 Interpretive Statements SINUS RHYTHM SEPTAL MYOCARDIAL INFARCTION , OF INDETERMINATE AGE [40+ ms Q WAVE IN V1/V2] Compared to ECG 09/05/2024 19:58:19 First degree AV block no longer present Myocardial infarct finding still present Electronically Signed On 09-06-2024 17:17:56 CDT by Reid Barnett M.D. [id number]
[2024-09-06] MEDS: enoxaparin 40 mg/0.4 mL Syringe SUBCUT ×2 (01:22→23:53)
[2024-09-06] MEDS: metoprolol succinate ER (24 HR) 25 mg Tablet PO (01:22)
[2024-09-06 03:47] LABS: Troponin 5 6HR 43.16 ng/L (0-10); Troponin 5 6HR Delta 5.16 ng/L (0-12)
[2024-09-06] MEDS: acetaminophen 325 mg Tablet 650 MG PO (04:42)
--- NOTE | 2024-09-06 07:01 | USCV_ITS ---
Tiff Rose Age: 78 Gender: F : 1945 Exam Date: 09/06/2024 03:44 Ordering Phys: Sterling Reynolds MD Technologist: GORDO [place] [facility] [place]: systolic murmur and HTN murmur and history of CHF BP: 176 / 78 HR: 63 Rhythm: Sinus Technical Quality: Adequate MEASUREMENTS (Male / Female) Normal Values 2D ECHO LV Diastolic Diameter PLAX 3.4 cm 4.2 - 5.9 / 3.9 - 5.3 cm IVS Diastolic Thickness 1.7 cm 0.6 - 1.0 / 0.6 - 0.9 cm IVS Systolic Thickness 2.4 cm LVPW Diastolic Thickness 1.4 cm 0.6 - 1.0 / 0.6 - 0.9 cm LVPW Systolic Thickness 1.7 cm LVOT Diameter 1.5 cm LV Ejection Fraction 2D Teich 68.7 % LV Ejection Fraction MOD 4C 64.7 % LV Ejection Fraction MOD 2C 60.3 % LV Ejection Fraction 2C AL 60.6 % LA Diameter 3.2 cm Aorta at Sinotubular Diameter 2.4 cm IVC Diameter 1.7 cm M-MODE LA Ao Ratio MM 1.5 AV Cusp Separation MM 1.6 cm DOPPLER AV Peak Velocity 159.0 cm/s LVOT Peak Velocity 134.0 cm/s AV Area Cont Eq vti 1.5 cm squared AV Area Cont Eq pk 1.5 cm squared MV Peak Velocity 178.0 cm/s MV Area PHT 4.1 cm squared Mitral E to A Ratio 0.9 TV Peak Velocity 250.0 cm/s TR Peak Velocity 281.0 cm/s TR Peak Gradient 31.6 mmHg TV Peak E Velocity 42.0 cm/s Right Atrial Pressure 3.0 mmHg Pulmonary Artery Systolic Pressu 34.6 mmHg PV Peak Velocity 134.0 cm/s FINDINGS Left Ventricle Mild to moderate LVH. Normal LV systolic function. Estimated LVEF 65%. Right Ventricle Normal right ventricular size and systolic function. Right Atrium Normal right atrial size. Left Atrium Normal left atrial size. Mitral Valve Thickened mitral valve. Trace mitral valve regurgitation. Aortic Valve Thickened aortic valve. No aortic valve stenosis. Mild aortic regurgitation (PHT 330 ms). Tricuspid Valve Structurally normal tricuspid valve. Trace tricuspid valve regurgitation. Mild TR gradient(31 mmHg). Pulmonic Valve Structurally normal pulmonic valve. Mild pulmonary valve regurgitation. Pericardium No pericardial effusion. Aorta Normal size aortic root and proximal ascending aorta. IVC Normal inferior vena cava. CONCLUSIONS Mild to moderate left ventricle hypertrophy. Normal LV systolic function. Estimated LVEF normal 65%. Mild tricuspid and aortic regurgitation. Mild aortic regurgitation. Mildly elevated RV and pulmonary pressures. Pulmonary pressure estimated at 36 mmHg Reid Barnett MD (Electronically Signed) Final Date: 06 September 2024 10:41 S
--- NOTE | 2024-09-06 08:30 | PC.PHAR ---
daughter takes care of all meds for her
[2024-09-06] MEDS: venlafaxine ER (24HR) 75 mg Capsule PO (09:18)
[2024-09-06] MEDS: buprenorphine-naloxone 4-1 mg Film 2 EACH SUBLINGUAL ×2 (09:18→18:21)
[2024-09-06] MEDS: amlodipine 10 mg Tablet PO (09:19)
[2024-09-06] MEDS: lisinopril 5 mg Tablet 20 MG PO (09:19)
[2024-09-06] MEDS: OLANZapine 5 mg TABLET PO (09:19)
[2024-09-06 11:04] LABS: Estmated Average Glucose 117; Hemoglobin A1C 5.7 % (4.0-6.0)
[2024-09-06 11:28] LABS: Iron 65 ug/dL (37-145); Total Iron Binding Capacity 309 mcg/dl; Unsaturated Iron Binding 244 ug/dL (112-347); Vitamin B12 400 pg/mL (232-1245)
--- NOTE | 2024-09-06 16:52 | P.PN_ITS ---
Subjective 2 Subjective: Admitted overnight. Patient currently on nitro drip of 50 with systolic blood pressure of 160 mmHg. Seen sitting up in chair. Anxious to go home. Denies any nausea, vomiting, headache. Seen with granddaughter at bedside. Denies any chest pain or difficulty in breathing. Denies any headache. Vitals/I&O/Wt Last Vital Signs Temp 98 F 09/06/24 08:00 Pulse 54 L 09/06/24 12:00 Resp 15 09/06/24 12:00 BP 102/46 09/06/24 12:00 Pulse Ox 98 09/06/24 12:00 O2 Del Method Room Air 09/06/24 12:00 09/06/24 09/06/24 09/06/24 06:59 14:59 22:59 Intake Total 1539.825 / 1560.025 72.650 / 72.650 Output Total 301 / 301 200 / 200 Balance 1238.825 / 1259.025 -127.350 / -127.350 Weight last 48 hrs Weight 64.5 kg Weight 64 kg Weight 63.957 kg Physical Exam 2 Narrative: General well-developed well-nourished female in no acute cardiopulmonary stress she is alert and oriented to person and year but not the month. She was able to give history with mild difficulty and limited specifics CV regular rate and rhythm with a 4/6 systolic ejection murmur best heard at the right upper sternal border Lungs clear to auscultation bilaterally Abdomen positive bowel sounds soft nontender Calves no asymmetry tenderness or edema. Data 09/05/24 19:38 09/05/24 19:38 A&P Assessment and plan (1) Hypertensive emergency: Currently on nitro drip. Overnight given hydralazine push and metoprolol XL along with 5 mg of IV push. Currently slightly bradycardic. Has been required to go up on antihypertensive at home. Continue with lisinopril 20 mg oral daily. Can give 20 mg of oral amlodipine and wean off nitroglycerin keeping systolic blood pressure less than 140/90 mmHg. Hold off on metoprolol given bradycardia. Target blood pressure less than 140/90 mmHg with mean over 65. Check echocardiogram. (2) Hypertension: Currently on 5 mg of oral daily dose at home. Required to give higher dose recently for last 2 days. Qualifiers: Hypertension type: primary hypertension Qualified Code(s): I10 - Essential (primary) hypertension (3) Alzheimer disease: Stable. Continue with home dose of olanzapine, Effexor, donepezil. Plan Check iron panel, vitamin B12, TSH, A1c, lipid panel. Check echocardiogram as above. Continue with home dose of Suboxone. Cardiac diet Full code Lovenox for DVT prophylaxis Attestations 2 Medical Necessity Statement*: Requires further hospitalization for management of hypertensive emergency as patient remains on nitro drip while antihypertensives are adjusted Diagnoses Hypertensive emergency I16.1 Essential hypertension I10 Hypertension type: primary hypertension Alzheimer disease G30.9; F02.80
[2024-09-06] MEDS: donepezil 5 MG Tablet 10 MG PO (18:21)
--- NOTE | 2024-09-06 18:30 | PC.NURSE ---
Shift summary: Pt stated she is feeling much better. She is now off Nitro gtt. Amlodipine and Lisinopril started, Lisinopril at a higher dose than her home dose of 5mg. She rested with eyes closed for majority of shift. She stated she didn't have enough sleep prior to admission. She ate her meals well. She was able to get out of bed [place] [facility] [place] just stand by assist with the monitoring cables. She urinates about 100ml at a time. She has not complaint of any pains this shift.
[2024-09-06] MEDS: hyDRALAzine 20 mg/mL INJ 1 mL 10 MG IVP (18:39)
[2024-09-07] VITALS (25 sets, daily range): BP systolic 101–181; BP diastolic 45–69; PULSE 50–66; RESP 11–18; TEMP 36.6–37.1; O2SAT 96–100; BMI 25.5
[2024-09-07 04:19] LABS: Basophils # 0.1 10^3/uL (0.0-0.1); Basophils % 0.7 %; Eosinophils # 0.2 10^3/uL (0.0-0.8); Eosinophils % 2.5 %; Hematocrit 41.4 % (36-47); Lymphocytes # 2.6 10^3/uL (0.8-4.8); Lymphocytes % 34.4 %; Mean Corpuscular HGB Conc 33.3 g/dL (30-55); Mean Corpuscular Hemoglobin 28.6 pg (27-33); Mean Corpuscular Volume 85.9 fl (85-98); Mean Platelet Volume 9.4 fL (7.4-10.4); Monocytes # 0.8 10^3/uL (0.2-0.9); Monocytes % 10.2 %; Neutrophils # 3.93 10^3/uL (1.8-7.7); Neutrophils % 51.8 %; Nucleated Red Blood Cells % 0 %; Platelet Count 247 10^3/cmm (157-399); Red Blood Count 4.82 10^6/uL (3.85-5.65); Red Cell Distribution Width 12.7 % (12.1-15.1); White Blood Count 7.58 10^3/uL (3.29-11.43)
[2024-09-07 04:43] LABS: Cholesterol 252 mg/dL (0-200); HDL Cholesterol 60 mg/dL (60-100); LDL Cholesterol Calculated 172 mg/dL (50-129); Magnesium 2.3 mg/dL (1.7-2.3); Triglycerides 99 mg/dL (0-150); VLDL Cholestrol Calculation 20 mg/dL (0-30)
[2024-09-07 04:44] LABS: Alanine Aminotransferase 15 U/L (0-33); Alkaline Phosphatase 73 U/L (35-105); Anion Gap 12.7 (5-19); Aspartate Amino Transferase 16 U/L (0-32); Blood Urea Nitrogen 20 mg/dL (8-23); Calcium 8.9 mg/dL (8.5-10.5); Carbon Dioxide 27 mmol/L (22-29); Chloride 104 mmol/L (98-107); Globulin 2.8 g/dL (1.3-4.6); Glucose 118 mg/dL (65-115); Osmolality Calculated 294 mOsm/kg (285-295); Potassium 3.7 mmol/L (3.5-5.1); Sodium 140 mmol/L (136-145); Total Bilirubin 0.7 mg/dL (0.15-1.2); Total Protein 6.8 g/dL (6.6-8.7)
[2024-09-07 05:16] LABS: Folate Level > 20.0 ng/mL (4.8-37.3)
--- NOTE | 2024-09-07 08:27 | PM.DCS ---
Discharge Providers Date of Admission: 09/05/24 21:20 Date of Discharge: September 07, 2024 Attending Provider at Admission: Sterling Reynolds MD Attending Provider at Discharge: Juancarlos Wright MD Primary Care Provider: Juwan Chavez MD Diagnoses at Discharge Discharge Diagnosis (1) Hypertensive emergency: Status: Resolved (2) Hypertension: Status: Acute Qualifiers: Hypertension type: primary hypertension Qualified Code(s): I10 - Essential (primary) hypertension (3) Alzheimer disease: Status: Acute Reason for Visit Reason for Visit: high bp clammy hot/cold weak Hospital Course Hospital Course Patient was admitted for severely elevated blood pressure and chest pain. She was admitted to the ICU and placed on telemetry. Cardiac workup was unremarkable. Her blood pressure therapies were escalated and her blood pressure did improve throughout the remainder of the monitoring period. She was placed on nitro therapy, which did improve her chest pain. An echocardiogram was obtained during her stay which showed: CONCLUSIONS Mild to moderate left ventricle hypertrophy. Normal LV systolic function. Estimated LVEF normal 65%. Mild tricuspid and aortic regurgitation. Mild aortic regurgitation. Mildly elevated RV and pulmonary pressures. Pulmonary pressure estimated at 36 mmHg. Her blood pressure medications were adjusted, and her pressures did improve to an acceptable range prior to discharge. On day 3 of her stay, patient reported that she was feeling much improved and requested discharge. She was discharged in stable and improved condition, and was recommended that she follow-up with her primary care physician next week. She will continue to monitor her blood pressures at home, log them, and bring to that appointment. Physical Exam Narrative: General: Cooperative patient in no apparent distress. Well developed. HEENT: Normocephalic, Atraumatic. External ears normal. Nasal passages patent without drainage. MMM. Heart: RRR. Resp: LCTA. No respiratory distress, no use of accessory muscles. Abd: Soft, non-tender. Non-distended. Extremities: No edema. Skin: No rash or lesions on exposed areas. Discharge Data Studies Completed and Pending Completed Studies During Hospitalization Category Date Time Status XR chest 1V portable [id number] Stat Exams 09/05/24 18:56 Completed CV. echo complete* [id number] Routine Ultrasound 09/06/24 07:01 Completed Radiology Impressions Chest X-Ray 09/05/24 18:56 IMPRESSION: Negative for infiltrate. Laboratory Results WBC 7.58 10^3/uL (3.29-11.43) 09/07/24 04:04 RBC 4.82 10^6/uL (3.85-5.65) 09/07/24 04:04 Hgb 13.80 g/dL (11.27-16.99) 09/07/24 04:04 Hct 41.4 % (36-47) 09/07/24 04:04 MCV 85.9 fl (85-98) 09/07/24 04:04 MCH 28.6 pg (27-33) 09/07/24 04:04 MCHC 33.3 g/dL (30-55) 09/07/24 04:04 RDW 12.7 % (12.1-15.1) 09/07/24 04:04 Plt Count 247 10^3/cmm (157-399) 09/07/24 04:04 MPV 9.4 fL (7.4-10.4) 09/07/24 04:04 Neut % (Auto) 51.8 % 09/07/24 04:04 Lymph % (Auto) 34.4 % 09/07/24 04:04 [place] % (Auto) 10.2 % 09/07/24 04:04 Eos % (Auto) 2.5 % 09/07/24 04:04 Baso % (Auto) 0.7 % 09/07/24 04:04 Neut # (Auto) 3.93 10^3/uL (1.8-7.7) 09/07/24 04:04 Lymph # (Auto) 2.6 10^3/uL (0.8-4.8) 09/07/24 04:04 [place] # (Auto) 0.8 10^3/uL (0.2-0.9) 09/07/24 04:04 Eos # (Auto) 0.2 10^3/uL (0.0-0.8) 09/07/24 04:04 Baso # (Auto) 0.1 10^3/uL (0.0-0.1) 09/07/24 04:04 Nucleated RBC % (auto) 0 % 09/07/24 04:04 Nucleated RBCs # 0.0 /100WBC 09/07/24 04:04 Sodium 140 mmol/L (136-145) 09/07/24 04:04 Potassium 3.7 mmol/L (3.5-5.1) 09/07/24 04:04 Chloride 104 mmol/L (98-107) 09/07/24 04:04 Carbon Dioxide 27 mmol/L (22-29) 09/07/24 04:04 Anion Gap 12.7 (5-19) 09/07/24 04:04 BUN 20 mg/dL (8-23) 09/07/24 04:04 Creatinine 0.7 mg/dL (0.5-0.9) 09/07/24 04:04 GFR Calculation Not Reportable 09/07/24 04:04 Glucose 118 mg/dL (65-115) H 09/07/24 04:04 Estimat Average Glucose 117 09/06/24 02:34 Hemoglobin A1c 5.7 % (4.0-6.0) 09/06/24 02:34 Calculated Osmolality 294 mOsm/kg (285-295) 09/07/24 04:04 Calcium 8.9 mg/dL (8.5-10.5) 09/07/24 04:04 Magnesium 2.3 mg/dL (1.7-2.3) 09/07/24 04:04 Iron 65 ug/dL (37-145) 09/06/24 02:34 TIBC 309 mcg/dl 09/06/24 02:34 % Saturation 21.0 % (20-50) 09/06/24 02:34 Unsat Iron Binding 244 ug/dL (112-347) 09/06/24 02:34 Total Bilirubin 0.7 mg/dL (0.15-1.2) 09/07/24 04:04 AST 16 U/L (0-32) 09/07/24 04:04 ALT 15 U/L (0-33) 09/07/24 04:04 Alkaline Phosphatase 73 U/L (35-105) 09/07/24 04:04 Troponin T Baseline 38 ng/L (0-10) H 09/05/24 19:38 Troponin T 120 Minute 47.56 ng/L (0-10) H 09/05/24 21:17 Delta Troponin T 9.56 ABS# (0-10) 09/05/24 21:17 Troponin T Hi Sens 6Hr 43.16 ng/L (0-10) H 09/06/24 02:34 Troponin T Hi Sens 6Hr Delta 5.16 ng/L (0-12) 09/06/24 02:34 Total Protein 6.8 g/dL (6.6-8.7) 09/07/24 04:04 Albumin 4.0 g/dL (3.5-5.2) 09/07/24 04:04 Globulin 2.8 g/dL (1.3-4.6) 09/07/24 04:04 Triglycerides 99 mg/dL (0-150) 09/07/24 04:04 Cholesterol 252 mg/dL (0-200) H 09/07/24 04:04 LDL Cholesterol, Calc 172 mg/dL (50-129) H 09/07/24 04:04 Total VLDL Cholesterol 20 mg/dL (0-30) 09/07/24 04:04 HDL Cholesterol 60 mg/dL (60-100) 09/07/24 04:04 Cholesterol/HDL Ratio 4.20 mg/dL (0.0-4.40) 09/07/24 04:04 Lipase 20 U/L (13-60) 09/05/24 19:38 Vitamin B12 400 pg/mL (232-1245) 09/06/24 02:34 Folate > 20.0 ng/mL (4.8-37.3) 09/07/24 04:04 TSH 5.50 uIU/mL (0.27-4.20) H 09/06/24 02:34 Vitals Last Vital Signs Temp 98.7 F 09/07/24 04:00 Pulse 54 L 09/07/24 06:00 Resp 14 09/07/24 06:00 BP 132/57 09/07/24 06:00 Pulse Ox 98 09/07/24 06:00 O2 Del Method Room Air 09/07/24 06:00 Discharge Plan Discharge Patient Disposition: Home Health Service Condition: Stable Prescriptions: New amlodipine 5 mg tablet 5 mg PO DAILY Qty: 30 0RF lisinopril 20 mg tablet 20 mg PO DAILY Qty: 30 0RF Continued donepezil 10 mg tablet 10 mg PO QPM olanzapine 5 mg tablet 5 mg PO DAILY folic acid 1 mg tablet 1 mg PO DAILY cholecalciferol (vitamin D3) 1,250 mcg (50,000 unit) capsule 1,250 mcg PO Q7D venlafaxine 75 mg capsule,extended release 24hr 75 mg PO DAILY minocycline 50 mg capsule 50 mg PO DAILY buprenorphine-naloxone [Suboxone] 8-2 mg film 1 film sublingual BID dicyclomine 20 mg tablet 20 mg PO TID PRN (Reason: abdominal pain) Qty: 14 0RF Discontinued lisinopril 5 mg tablet 5 mg PO DAILY Qty: 14 0RF ibuprofen 200 mg Tablet 400 mg PO Q6H PRN (Reason: Pain) Discharge Orders: Discharge Order (Routine); Ordered 09/07/24 Ordered By: Arslan Alvarado Referrals: [facility] [Outside] Juwan Chavez MD [Primary Care Provider] - 09/12/24 12:00 pm (Please bring blood pressure log to next appt with Dr. Chavez. ) Discharge Diet: Advance as tolerated and Usual diet Discharge Activity: Resume usual activity Patient Instructions: Lisinopril (By mouth), Amlodipine (By mouth), How to Take a Blood Pressure Reading (DC), Hypertension (DC), Hypertension in the Older Adult (DC), Opioid Safety Discharge Attestations Time Spent in Discharge Care*: less than 30 min Specific Discharge Activities: educating patient, educating and/or supporting family/caregiver, discussing with pcp/other providers, discussing with pillowcase folder/social workers/dc planners, documenting/other paperwork and evaluating patient/reviewing data Time Spent in Smoking Cessation: 3 to 10 minutes Quality Metrics Clinical Quality Measures [ No reported AMI, CVA or VTE this stay] Coding Level of Care Code Acute Code for Chg Fwd Total time (in minutes) for Discharge: 29 Diagnoses Hypertensive emergency I16.1 Essential hypertension I10 Hypertension type: primary hypertension Alzheimer disease G30.9; F02.80
[2024-09-07] MEDS: buprenorphine-naloxone 4-1 mg Film 2 EACH SUBLINGUAL (10:59)
[2024-09-07] MEDS: OLANZapine 5 mg TABLET PO (11:00)
[2024-09-07] MEDS: venlafaxine ER (24HR) 75 mg Capsule PO (11:01)
[2024-09-07] MEDS: folic acid 1 mg Tablet PO (11:01)
[2024-09-07] MEDS: lisinopril 5 mg Tablet 20 MG PO (11:01)
--- NOTE | 2024-09-07 12:55 | PC.NURSE ---
Discharge instruction reviewed with patient and grand daughter. Discussed amlodipine, Lisinopril, HTN and how to take BP. Care noted provided. BP log provided. Both verbalized understanding. Discharge delay related to waiting on pt's grand daughter for ride and to discuss discharge. Per pt she forgets and wanted a family member present for discharge.
== END 2024-09-07 12:55 | disposition home or self-care (01) | DRG 305 ==
LOC: ER 21:47 → ICU 22:22
PROVIDERS: Admitting Provider Internal Medicine; Emergency Provider Emergency Medicine; PCP Family Medicine; Visit Provider Student in an Organized Health Care Education/Training Program
DX: I16.1 Hypertensive emergency (principal); G30.9 Alzheimer's disease, unspecified; F02.80 Dementia in other diseases classified elsewhere, unspecified severity, without behavioral disturbance, psychotic disturbance, mood disturbance, and anxiety; I10 Essential (primary) hypertension; I35.1 Nonrheumatic aortic (valve) insufficiency; Z90.710 Acquired absence of both cervix and uterus; Z87.891 Personal history of nicotine dependence
CPT/HCPCS: 36415; 71045; 80053; 80061; 82607; 82746; 83036; 83540; 83550; 83690; 83735; 84443; 84484; 85025; 93005; 93306; 96372; 96374; 96375; 99291; 99292; J0360; J0573; J1650; J3490; J7030